=== PATIENT | male | born 1950 | race Caucasian/White ===

== ENCOUNTER 2017-12-06 09:49 | Inpatient (IN) | payer OTHER, MEDICAID ==
[2017-12-06] MEDS ORDERED: ALBUTEROL 3 ML DEYVIAL IH ONE (09:58)
[2017-12-06] MEDS ORDERED: NS 1,000 ML IV ONE (09:58)
[2017-12-06] MEDS ORDERED: IPRATROPIUM/ALBUTEROL 3 ML DEYVIAL IH ONE (09:58)
[2017-12-06] MEDS ORDERED: ALBUTEROL 3 ML DEYVIAL ONE (09:59)
[2017-12-06 10:07] LABS: PLATELET COUNT 217 10^3/uL (150-400)
[2017-12-06] MEDS ORDERED: NS 2,200 ML IV ONE (10:28)
[2017-12-06] MEDS ORDERED: PIPERACILLIN/TAZO 4.5 GM/DEX 100 ML IV ONE (10:29)
--- NOTE | 2017-12-06 10:30 | EDPHY ---
H & P Stated Complaint: SOB, wheezing Time Seen by Provider: 12/06/17 10:29 HPI/ROS: CHIEF COMPLAINT: Respiratory distress HISTORY OF PRESENT ILLNESS: The patient is brought in emergently from the homeless custodial with respiratory distress. The patient does have a history of COPD. He was found minimally responsive in the bathroom. The patient was noted to be markedly hypoxemic in route. He was given IV Solu-Medrol and a DuoNeb. He ultimately was placed on CPAP per EMS. The patient arrives with respiratory distress and is unable to provide history upon arrival. REVIEW OF SYSTEMS: A comprehensive 10 point review of systems is otherwise negative aside from elements mentioned in the history of present illness. Source: Patient - Personal History Current Tetanus/Diphtheria Vaccine: Unsure Current Tetanus Diphtheria and Acellular Pertussis (TDAP): Unsure - Medical/Surgical History Hx Asthma: No Hx Chronic Respiratory Disease: Yes Hx Diabetes: Yes Hx Cardiac Disease: No Hx Renal Disease: No Hx Cirrhosis: No Hx Alcoholism: No Hx HIV/AIDS: No Hx Splenectomy or Spleen Trauma: No Other PMH: difficult to obtain due to pt's condition. Per EMS COPD and DM. - Physical Exam Exam: General Appearance: Elderly male, disheveled, moderate respiratory distress Eyes: Pupils equal and round no pallor or injection ENT, Mouth: Dry mucous membranes Respiratory: Rhonchorous breath sounds bilaterally Cardiovascular: Tachycardic Gastrointestinal: Abdomen is soft and nontender, no masses, bowel sounds normal Neurological: Moves all 4 extremities with 5/5 strength Skin: Warm and dry, no rashes Musculoskeletal: Neck is supple nontender Extremities: symmetrical, full range of motion Constitutional: Initial Vital Signs Temperature (C) 36.9 C 12/06/17 09:49 Heart Rate 131 H 12/06/17 09:49 Respiratory Rate 24 H 12/06/17 09:49 Blood Pressure 89/56 L 12/06/17 09:49 O2 Sat (%) 85 L 12/06/17 09:49 O2 Delivery Mode Bi-Pap O2 (L/minute) 15 Allergies/Adverse Reactions: erythromycin base Allergy (Verified 12/06/17 10:09) Home Medications: Medication Instructions Recorded Gabapentin 600 mg PO TID 12/06/17 Insulin Aspart 0 12/06/17 Insulin Glargine [Lantus] 0 unit SC AD 12/06/17 Levothyroxine [Synthroid 50 mcg 50 mcg PO DAILY06 12/06/17 (*)] Losartan Potassium [Cozaar 50 mg 50 mg PO DAILY 12/06/17 (*)] Tamsulosin HCl [Flomax 0.4 MG (*)] 0.4 mg PO DAILY 12/06/17 amLODIPine BESYLATE [Amlodipine 5 mg PO DAILY 12/06/17 Besylate] metFORMIN HCL [Glucophage 500 mg 500 mg PO BIDMEAL 12/06/17 (*)] traZODone [traZODONE 50MG (*)] 50 mg PO HS 12/06/17 Medical Decision Making - Diagnostics Imaging Results: Imaging Impressions Chest X-Ray 12/06/17 09:53 Impression: 1. Right lower lung pneumonia versus [place] hump related to pulmonary infarction. Clinical correlation is required. 2. Underlying interstitial lung disease of unknown chronicity. 3. Distorted left hilum of unknown chronicity. We would be happy to review any old outside imaging studies if and when they become available for comparison. Results discussed with Dr. Daron Byrne. Procedures: Procedure: Ultrasound guidance. Using the linear probe covered in a sterile sheath, a short axis of the vein was obtained. The vein was completely compressible and was identified as separate from the adjacent non-compressible arterial structure. Under real- time guidance, the introducer needle was observed up to the vein, and then punctured it. Indication: Sepsis. Risks, benefits, alternatives discussed with the patient including but not limited to bleeding, infection, vascular injury, and collapsed lung and consent obtained. A timeout was observed. Full maximal sterile barrier technique was used including cap, gown, sterile gloves, large sheet, hand washing and chlorhexidine prep. The area was anesthetized with 1% lidocaine. A 7 Divehi triple lumen was placed in the right internal jugular vein using standard Seldinger technique. There were no complications. Blood return low pressure, dark blood. Patient tolerated procedure well. CXR results: Appropriate line placement, and no pneumothorax. X-ray was interpreted by myself. Radiologist interpretation is pending. The procedure was performed by myself. ED Course/Re-evaluation: The patient presents the ED with severe respiratory distress. He was brought into the resuscitation room. The patient was placed on BiPAP. An ABG does demonstrate mild CO2 retention. Chest x-ray demonstrates pneumonia. Patient's initial lactic acid was elevated at 2.7. Blood cultures x2 were obtained. The patient was started on Zosyn. He has received a 30 milligram/kilogram bolus for soft blood pressure upon arrival. I did clear severe sepsis in the setting of his pneumonia, leukocytosis, tachycardia and tachypnea. Patient was reassessed at 11:00 a.m.. Blood pressure currently 90/70, heart rate 120 After the patient has fluid bolus he continued to have borderline blood pressures in the systolic 80-90 range. A triple-lumen catheter has been placed. Patient will be started on Levophed for blood pressure support. He is placed back on BiPAP. Blood pressure at 12:30 is currently 105/70, pressors have not been started and will be held. Repeat has been ordered. Repeat venous lactate is noted to be 2.3 at 2:50 p.m.. Blood pressure currently 100/62. Awaiting ICU bed. Differential Diagnosis: Differential diagnosis considered includes sepsis, severe sepsis, septic shock, pneumonia, influenza Critical Care Time: Critical care time exclusive of procedures and exclusive of the PA's time was 65 minutes, performed by myself, Ron Byrne MD. The patient presents to the ED with severe sepsis and borderline shock. - Data Points Laboratory Results: Laboratory Results 12/06/17 10:00 12/06/17 10:00 12/06/17 12/06/17 12/06/17 10:01 10:00 10:00 WBC RBC Hgb POC Hgb 15.3 gm/dL gm/dL (13.7-17.5) Hct POC Hct 45 % % (40-51) MCV MCH MCHC RDW Plt Count MPV Neut % (Auto) Lymph % (Auto) [place] % (Auto) Eos % (Auto) Baso % (Auto) Nucleat RBC Rel Count Absolute Neuts (auto) Absolute Lymphs (auto) Absolute Monos (auto) Absolute Eos (auto) Absolute Basos (auto) Absolute Nucleated RBC Immature Gran % Seg Neutrophils % Band Neutrophils % Lymphocytes % Monocytes % Eosinophils % Basophils % Metamyelocytes % Myelocytes % Promyelocytes % Blast Cells % Immature Gran # Absolute Seg Neuts Absolute Band Neuts Absolute Lymphocytes Absolute Monocytes Absolute Eosinophils Absolute Basophils Absolute Metamyelocyte Absolute Myelocytes Absolute Promyelocytes Absolute Plasma Cells Nucleated RBCs Absolute Blast Cells Plasma Cells % Platelet Estimate Microcytic Cells Puncture Site Patient Temperature pCO2 pO2 Total CO2 ABG pH ABG HCO3 ABG O2 Saturation ABG Base Excess ABG Lactic Acid VBG Lactic Acid 2.6 mmol/L H mmol/L (0.7-2.1) O2 Concentration % POC Sodium 141 mEq/L mEq/L (135-145) Sodium 138 mEq/L mEq/L (135-145) POC Potassium 3.1 mEq/L L mEq/L (3.3-5.0) Potassium 3.4 mEq/L mEq/L (3.3-5.0) POC Chloride 96 mEq/L L mEq/L (97-110) Chloride 96 mEq/L L mEq/L (97-110) Carbon Dioxide 32 mEq/l H mEq/l (22-31) Anion Gap 10 mEq/L mEq/L (6-14) POC BUN 20 mg/dL mg/dL (7-23) BUN 20 mg/dL mg/dL (7-23) Creatinine 1.2 mg/dL mg/dL (0.7-1.3) POC Creatinine 1.3 mg/dL mg/dL (0.7-1.3) Estimated GFR 60 Glucose 68 mg/dL L mg/dL (70-100) POC Glucose 77 mg/dL mg/dL (70-100) Calcium 9.2 mg/dL mg/dL (8.5-10.4) NT-Pro-B Natriuret Pep 373 pg/mL H pg/mL (0-125) 12/06/17 12/06/17 10:00 10:00 WBC 32.56 10^3/uL H 10^3/uL (3.80-9.50) RBC 5.62 10^6/uL 10^6/uL (4.40-6.38) Hgb 13.1 g/dL L g/dL (13.7-17.5) POC Hgb Hct 43.9 % % (40.0-51.0) POC Hct MCV 78.1 fL L fL (81.5-99.8) MCH 23.3 pg L pg (27.9-34.1) MCHC 29.8 g/dL L g/dL (32.4-36.7) RDW 17.2 % H % (11.5-15.2) Plt Count 217 10^3/uL 10^3/uL (150-400) MPV 10.0 fL fL (8.7-11.7) Neut % (Auto) Not Reported Lymph % (Auto) Not Reported [place] % (Auto) Not Reported Eos % (Auto) Not Reported Baso % (Auto) Not Reported Nucleat RBC Rel Count Not Reported Absolute Neuts (auto) Not Reported Absolute Lymphs (auto) Not Reported Absolute Monos (auto) Not Reported Absolute Eos (auto) Not Reported Absolute Basos (auto) Not Reported Absolute Nucleated RBC Not Reported Immature Gran % Not Reported Seg Neutrophils % 64.7 % % Band Neutrophils % 27.3 % % Lymphocytes % 3.0 % % Monocytes % 3.0 % % Eosinophils % 0.0 % % Basophils % 1.0 % % Metamyelocytes % 0.0 % % Myelocytes % 1.0 % % Promyelocytes % 0.0 % % Blast Cells % 0.0 % % Immature Gran # Not Reported Absolute Seg Neuts 21.07 10^3/uL H 10^3/uL (1.70-6.50) Absolute Band Neuts 8.89 10^3/uL H 10^3/uL (0.00-0.70) Absolute Lymphocytes 0.98 10^3/uL L 10^3/uL (1.00-3.00) Absolute Monocytes 0.98 10^3/uL H 10^3/uL (0.30-0.80) Absolute Eosinophils 0.00 10^3/uL L 10^3/uL (0.03-0.40) Absolute Basophils 0.33 10^3/uL H 10^3/uL (0.02-0.10) Absolute Metamyelocyte 0.00 10^3/mL 10^3/mL (0.00-0.00) Absolute Myelocytes 0.33 10^3/mL H 10^3/mL (0.00-0.00) Absolute Promyelocytes 0.00 10^3/uL 10^3/uL (0.00-0.00) Absolute Plasma Cells 0.00 10^3/uL 10^3/uL (0.00-0.00) Nucleated RBCs 1.0 /100 WBC H /100 WBC (0-0) Absolute Blast Cells 0.00 10^3/uL 10^3/uL (0.00-0.00) Plasma Cells % 0.0 % % Platelet Estimate ADEQUATE (ADEQ) Microcytic Cells 1+ H Puncture Site NONE GIVEN Patient Temperature 37.0 DEGREES DEGREES pCO2 53 mmHg H mmHg (34-38) pO2 55 mmHg L mmHg (65-75) Total CO2 31 mEq/L H mEq/L (23-27) ABG pH 7.36 (7.35-7.45) ABG HCO3 29 mEq/L H mEq/L (22-26) ABG O2 Saturation 85 % L % (92-95) ABG Base Excess 2.9 mEq/L H mEq/L (-2.5-2.5) ABG Lactic Acid 2.5 mmol/L H mmol/L (0.5-1.6) VBG Lactic Acid O2 Concentration % NG % % (0-100) POC Sodium Sodium POC Potassium Potassium POC Chloride Chloride Carbon Dioxide Anion Gap POC BUN BUN Creatinine POC Creatinine Estimated GFR Glucose POC Glucose Calcium NT-Pro-B Natriuret Pep Medications Given: Sodium Chloride (Ns) 1,000 mls @ 150 mls/hr IV CONT DANE Stop: 06/04/18 12:14 Last Admin: 12/06/17 12:36 Dose: 1,000 mls Discontinued Medications Albuterol (Proventil Neb) 3 ml IH EDNOW ONE Stop: 12/06/17 09:59 Last Admin: 12/06/17 10:05 Dose: 3 ml Albuterol/Ipratropium (Duoneb) 3 ml IH EDNOW ONE Stop: 12/06/17 09:59 Last Admin: 12/06/17 10:06 Dose: 3 ml Sodium Chloride (Ns) 1,000 mls @ 0 mls/hr IV ONCE ONE; Wide Open PRN Reason: Protocol Stop: 12/06/17 09:59 Last Admin: 12/06/17 10:06 Dose: 1,000 mls Sodium Chloride (Ns) 2,200 mls @ 4,400 mls/hr 30 ml/kg infuse over 30 min ( 2200 ml) IV EDNOW ONE PRN Reason: Protocol Stop: 12/06/17 10:57 Last Admin: 12/06/17 10:43 Dose: 2,200 mls Piperacillin/Tazobactam/Dextrose (Zosyn (Premix)) 100 mls @ 200 mls/hr IV EDNOW ONE PRN Reason: Protocol Stop: 12/06/17 10:58 Last Admin: 12/06/17 11:00 Dose: 100 mls Point of Care Test Results: Chemistry 12/06/17 10:01 POC Sodium 141 mEq/L mEq/L (135-145) POC Potassium 3.1 mEq/L L mEq/L (3.3-5.0) POC Chloride 96 mEq/L L mEq/L (97-110) POC BUN 20 mg/dL mg/dL (7-23) POC Creatinine 1.3 mg/dL mg/dL (0.7-1.3) POC Glucose 77 mg/dL mg/dL (70-100) ISTAT H&H 12/06/17 10:01 POC Hgb 15.3 gm/dL gm/dL (13.7-17.5) POC Hct 45 % % (40-51) Departure - Departure Disposition: [facility] Inpatient Acute Clinical Impression: Severe sepsis, Chronic obstructive pulmonary disease with acute exacerbation Pneumonia Qualifiers: Laterality: bilateral Condition: Critical
[2017-12-06] MEDS ORDERED: ACETAMINOPHEN 325 MG TAB PO PRN (12:06)
[2017-12-06] MEDS ORDERED: ALBUTEROL 3 ML DEYVIAL IH PRN (12:06)
[2017-12-06] MEDS ORDERED: ONDANSETRON DISINTEGRATING 4 MG TAB PO PRN (12:06)
[2017-12-06] MEDS ORDERED: NS 1,000 ML IV SCH (12:15)
[2017-12-06] MEDS ORDERED: NOREPINEPHRINE BITARTRATE 4 MG in NS 500 ML IV ONE (12:19)
--- NOTE | 2017-12-06 13:41 | CPEKG ---
Test Reason : OPEN Blood Pressure : / mmHG Vent. Rate : 119 BPM Atrial Rate : 120 BPM P-R Int : 111 ms QRS Dur : 060 ms QT Int : 309 ms P-R-T Axes : 074 062 000 degrees QTc Int : 435 ms Sinus tachycardia Multiple ventricular premature complexes Probable left atrial enlargement Confirmed by Ron Byrne ([id number]) on 12/06/2017 1:40:45 PM Referred By: Confirmed By:Ron Byrne
[2017-12-06] MEDS ORDERED: LORazepam 2 MG/ML INJ ONE (14:53)
[2017-12-06] MEDS: LORazepam 2 MG/ML INJ IVP PRN ×2 (15:00→19:17)
[2017-12-06] MEDS ORDERED: NOREPINEPHRINE BITARTRATE 4 MG in NS 500 ML IV SCH (15:00)
[2017-12-06] MEDS ORDERED: NOREPINEPHRINE BITARTRATE 16 MG in NS 250 ML IV SCH (15:00)
[2017-12-06] MEDS: NS W/ 20 KCl/L 1,000 ML IV SCH (15:15)
[2017-12-06] MEDS: IPRATROPIUM/ALBUTEROL 3 ML DEYVIAL IH SCH ×2 (16:03→20:38)
--- NOTE | 2017-12-06 16:15 | GCON ---
STORY TELLER CONSULTATION REASON FOR ADMISSION: Pneumonia, sepsis, COPD exacerbation. HISTORY OF PRESENT ILLNESS: The patient is a 67-year-old white male with a past medical history incl uding chronic obstructive pulmonary disease. He was brought in via EMS from a homeless long term in in creasing respiratory difficulty. EMS placed him on CPAP, and he was brought in. He was subsequently diagnosed with pneumonia, admitted to the intensive care unit. The patient is currently on BiPAP an d is unable to provide any history at this time. All history is gleaned from the medical record. PAST MEDICAL HISTORY: Again significant for chronic obstructive pulmonary disease. ALLERGIES: Erythromycin. SOCIAL HISTORY: He is homeless. He has significant tobacco use, unknown alcohol use. MEDICATIONS: At home include gabapentin, insulin, levothyroxine, losartan, tamsulosin, amlodipine, m etformin, and trazodone. PHYSICAL EXAM: VITAL SIGNS: Blood pressure is 99/53, pulse 121, respirations 32, temperature 37.5, oxygen saturation 91% on BiPAP at 100% FiO2. GENERAL: He is a well-developed, elderly white male wh o is minimally agitated on BiPAP. HEENT: Eyes are PERRLA, EOMI. Throat exam is deferred. NECK: S upple. There is no cervical adenopathy. HEART: Regular rate and rhythm. He is markedly tachycardi c. LUNGS: Diminished breath sounds and prolongation expiratory phase. There are a few bibasilar cr ackles. ABDOMEN: Soft, nontender. Bowel sounds are present. EXTREMITIES: No clubbing, cyanosis, or edema. LABORATORIES: White count is 32.56, hemoglobin 13, hematocrit 43. Platelet count is 217. Sodium 14 1, potassium 3.1, chloride 96, CO2 32, BUN 20, creatinine 1.2. Glucose is 98. BNP is elevated at 37 3. Arterial blood gas: pH 7.30, pCO2 of 50, PO2 of 183. Bicarb is 25, oxygen saturation 99%. This is on 100% and BiPAP. Chest x-ray shows central line in good position. There is a dense infiltrate in the right lower lung field, and there is a hint of an infiltrate in the left lower lung field. IMPRESSION: 1. Severe multilobar pneumonia. 2. Chronic obstructive pulmonary disease, acute exacerbation. 3. Hypercarbic respiratory failure. 4. Severe sepsis. 5. Diabetes. 6. Hypothyroidism. 7. Benign prostatic hypertrophy. 8. Probable hypertension. 9. Incomplete database. RECOMMENDATIONS: 1. Agree with admission to the intensive care unit. 2. Continue on BiPAP for now. 3. Mild sedation with Ativan. 4. IV steroids consisting of Solu-Medrol 125 q.6. 5. Sepsis protocol. 6. Agree with current antibiotic coverage of Zosyn and Levaquin. 7. DVT and PE prophylaxis. 8. Stress ulcer prophylaxis. 9. Close cardiovascular monitoring. 10. Aggressive blood sugar control. /[id number]/MODL
--- NOTE | 2017-12-06 16:18 | PDGENHP ---
History and Physical - Chief Complaint Acute unresponsiveness - History of Present Illness Primary care provider: [facility] HPI: 67-year-old male found down unresponsive in the custodial bathroom with visible respiratory distress. EMS responded to the scene, administered Solu- Medrol, nebulizer treatment, face mask oxygen. After the patient presented emergency department, he informs me that he has been experiencing some subjective fevers and chills, shortness of breath, minimal cough, no overt chest pain. He reports that he has not taken his home medications on the morning of presentation, and he is unable to provide any additional history at this time. History Information - Allergies/Home Medication List Allergies/Adverse Reactions: erythromycin base Allergy (Verified 12/06/17 10:09) Home Medications: Gabapentin 600 mg PO TID 12/06/17 [Last Taken Unknown] Insulin Aspart 0 12/06/17 [Last Taken Unknown] Insulin Glargine [Lantus] 0 unit SC AD 12/06/17 [Last Taken Unknown] Levothyroxine [Synthroid 50 mcg (*)] 50 mcg PO DAILY06 12/06/17 [Last Taken Unknown] Losartan Potassium [Cozaar 50 mg (*)] 50 mg PO DAILY 12/06/17 [Last Taken Unknown] Tamsulosin HCl [Flomax 0.4 MG (*)] 0.4 mg PO DAILY 12/06/17 [Last Taken Unknown] amLODIPine BESYLATE [Amlodipine Besylate] 5 mg PO DAILY 12/06/17 [Last Taken Unknown] metFORMIN HCL [Glucophage 500 mg (*)] 500 mg PO BIDMEAL 12/06/17 [Last Taken Unknown] traZODone [traZODONE 50MG (*)] 50 mg PO HS 12/06/17 [Last Taken Unknown] I have personally reviewed and updated: family history, medical history, social history, surgical history - Past Medical History COPD (With chronic hypoxic respiratory failure, patient reports utilizes oxygen 24 hr a day in the outpatient setting), CVA (Without known residual deficits), diabetes type 2 (With diabetic neuropathy), GERD (With Jacome's esophagus), hypertension, hyperlipidemia - Surgical History Additional surgical history: Bronchoscopy in 2016 (-) for malignancy - Family History Additional family history: Unobtainable - Social History Smoking Status: Former smoker Alcohol Use: None (None presently, suspected heavy use in past) Drug Use: None Additional social history: Homeless, recently residing custodial Review of Systems Review of Systems: ROS: 10pt was reviewed & negative except for what was stated in HPI & below Constitutional: Reports: chills, fever Respiratory: Reports: cough, shortness of breath Neurological: Reports: other (Unresponsiveness) Physical Exam Physical Exam: Temp Pulse Resp BP Pulse Ox 37.5 C 126 H 21 H 105/59 L 96 12/06/17 14:41 12/06/17 15:00 12/06/17 15:00 12/06/17 15:00 12/06/17 15:00 O2 (L/minute) 15 FIO2 (%) 80 Constitutional: not in pain, chronically ill appearing, uncomfortable Eyes: PERRL, anicteric sclera, EOMI Cardiovascular: tachycardia, No systolic murmur, No irregularly irregular, No edema Respiratory: expiratory wheeze, respiratory distress (Visibly labored breathing) , rhonchi (Right side on inspiration), No bronchial breath sounds Gastrointestinal: normoactive bowel sounds, soft, non-tender abdomen, No distension Skin: warm, No rash Neurologic: AAOx3, No weakness (Motor strength 5/5 bilateral lower extremities) Psychiatric: not anxious, flat affect, poor memory, No agitated Lab Data & Imaging Review 12/06/17 10:00 12/06/17 10:00 WBC 32.56 10^3/uL (3.80-9.50) H 12/06/17 10:00 RBC 5.62 10^6/uL (4.40-6.38) 12/06/17 10:00 Hgb 13.1 g/dL (13.7-17.5) L 12/06/17 10:00 POC Hgb 15.3 gm/dL (13.7-17.5) 12/06/17 10:01 Hct 43.9 % (40.0-51.0) 12/06/17 10:00 POC Hct 45 % (40-51) 12/06/17 10:01 MCV 78.1 fL (81.5-99.8) L 12/06/17 10:00 MCH 23.3 pg (27.9-34.1) L 12/06/17 10:00 MCHC 29.8 g/dL (32.4-36.7) L 12/06/17 10:00 RDW 17.2 % (11.5-15.2) H 12/06/17 10:00 Plt Count 217 10^3/uL (150-400) 12/06/17 10:00 MPV 10.0 fL (8.7-11.7) 12/06/17 10:00 Neut % (Auto) Not Reported 12/06/17 10:00 Lymph % (Auto) Not Reported 12/06/17 10:00 Spink % (Auto) Not Reported 12/06/17 10:00 Eos % (Auto) Not Reported 12/06/17 10:00 Baso % (Auto) Not Reported 12/06/17 10:00 Nucleat RBC Rel Count Not Reported 12/06/17 10:00 Absolute Neuts (auto) Not Reported 12/06/17 10:00 Absolute Lymphs (auto) Not Reported 12/06/17 10:00 Absolute Monos (auto) Not Reported 12/06/17 10:00 Absolute Eos (auto) Not Reported 12/06/17 10:00 Absolute Basos (auto) Not Reported 12/06/17 10:00 Absolute Nucleated RBC Not Reported 12/06/17 10:00 Immature Gran % Not Reported 12/06/17 10:00 Seg Neutrophils % 64.7 % 12/06/17 10:00 Band Neutrophils % 27.3 % 12/06/17 10:00 Lymphocytes % 3.0 % 12/06/17 10:00 Monocytes % 3.0 % 12/06/17 10:00 Eosinophils % 0.0 % 12/06/17 10:00 Basophils % 1.0 % 12/06/17 10:00 Metamyelocytes % 0.0 % 12/06/17 10:00 Myelocytes % 1.0 % 12/06/17 10:00 Promyelocytes % 0.0 % 12/06/17 10:00 Blast Cells % 0.0 % 12/06/17 10:00 Immature Gran # Not Reported 12/06/17 10:00 Absolute Seg Neuts 21.07 10^3/uL (1.70-6.50) H 12/06/17 10:00 Absolute Band Neuts 8.89 10^3/uL (0.00-0.70) H 12/06/17 10:00 Absolute Lymphocytes 0.98 10^3/uL (1.00-3.00) L 12/06/17 10:00 Absolute Monocytes 0.98 10^3/uL (0.30-0.80) H 12/06/17 10:00 Absolute Eosinophils 0.00 10^3/uL (0.03-0.40) L 12/06/17 10:00 Absolute Basophils 0.33 10^3/uL (0.02-0.10) H 12/06/17 10:00 Absolute Metamyelocyte 0.00 10^3/mL (0.00-0.00) 12/06/17 10:00 Absolute Myelocytes 0.33 10^3/mL (0.00-0.00) H 12/06/17 10:00 Absolute Promyelocytes 0.00 10^3/uL (0.00-0.00) 12/06/17 10:00 Absolute Plasma Cells 0.00 10^3/uL (0.00-0.00) 12/06/17 10:00 Nucleated RBCs 1.0 /100 WBC (0-0) H 12/06/17 10:00 Absolute Blast Cells 0.00 10^3/uL (0.00-0.00) 12/06/17 10:00 Plasma Cells % 0.0 % 12/06/17 10:00 Platelet Estimate ADEQUATE (ADEQ) 12/06/17 10:00 Microcytic Cells 1+ H 12/06/17 10:00 Puncture Site LEFT BRACHIAL 12/06/17 14:00 Patient Temperature 36.8 DEGREES 12/06/17 14:00 pCO2 50 mmHg (34-38) H 12/06/17 14:00 pO2 183 mmHg (65-75) H 12/06/17 14:00 Total CO2 25 mEq/L (23-27) 12/06/17 14:00 ABG pH 7.30 (7.35-7.45) L 12/06/17 14:00 ABG PO2/FiO2 Ratio 183 RATIO 12/06/17 14:00 ABG HCO3 24 mEq/L (22-26) 12/06/17 14:00 ABG O2 Saturation 99 % (92-95) H 12/06/17 14:00 ABG Base Excess -2.4 mEq/L (-2.5-2.5) 12/06/17 14:00 ABG Lactic Acid 2.7 mmol/L (0.5-1.6) H 12/06/17 14:58 VBG Lactic Acid 2.3 mmol/L (0.7-2.1) H 12/06/17 12:36 Mixed VBG O2 Saturation 88 % (65-75) H 12/06/17 12:36 O2 Concentration % 100 % (0-100) 12/06/17 14:00 Actual Respiration Rate 22 12/06/17 14:00 Inspiratory Time 0.8 SECS 12/06/17 14:00 Mode BiPAP YES 12/06/17 14:00 POC Sodium 141 mEq/L (135-145) 12/06/17 10:01 Sodium 138 mEq/L (135-145) 12/06/17 10:00 POC Potassium 3.1 mEq/L (3.3-5.0) L 12/06/17 10:01 Potassium 3.4 mEq/L (3.3-5.0) 12/06/17 10:00 POC Chloride 96 mEq/L (97-110) L 12/06/17 10:01 Chloride 96 mEq/L (97-110) L 12/06/17 10:00 Carbon Dioxide 32 mEq/l (22-31) H 12/06/17 10:00 Anion Gap 10 mEq/L (6-14) 12/06/17 10:00 POC BUN 20 mg/dL (7-23) 12/06/17 10:01 BUN 20 mg/dL (7-23) 12/06/17 10:00 Creatinine 1.2 mg/dL (0.7-1.3) 12/06/17 10:00 POC Creatinine 1.3 mg/dL (0.7-1.3) 12/06/17 10:01 Estimated GFR 60 12/06/17 10:00 Glucose 68 mg/dL (70-100) L 12/06/17 10:00 POC Glucose 77 mg/dL (70-100) 12/06/17 10:01 Calcium 9.2 mg/dL (8.5-10.4) 12/06/17 10:00 NT-Pro-B Natriuret Pep 373 pg/mL (0-125) H 12/06/17 10:00 Visualized and Interpreted Chest x-ray results: Yes Chest X-Ray results: other (Right lower lobe dense infiltrate, fibrotic appearing changes) Visualized and Interpreted EKG results: Yes EKG Interpretation: Positive for: other (Sinus tachycardia) Assessment & Plan Assessment: 67-year-old male presents with severe sepsis, acute on chronic hypoxic and hypercapnic respiratory failure, pneumonia Plan: 1. Severe sepsis. Present on admission, evidenced by 3/3 qSOFA criteria (ICDS- 3) with unresponsiveness on presentation, visible respiratory distress and tachypnea, hypotension, all of which are evidence of autonomic dysregulation in the setting of infection, notably pneumonia, with end-organ failure including respiratory failure, metabolic acidosis, acute kidney injury, unresponsiveness -discussed with Dr. Daron Byrne in the emergency department, he reports to me the patient has received the appropriate fluid bolus as well as additional IV fluids totaling between 3 and 4 L, current CVP 20 with central line -hold on any additional fluid boluses given that it appears the patient is volume resuscitated, continue on maintenance normal saline with potassium at 150ml/hr -empiric IV antibiotics -pressors ordered if needed, utilize Levophed 1st, for SBP less than 80, map less than 65, or rising arterial lactic acid level 2. Acute on chronic hypercapnic and hypoxic respiratory failure. Evidenced by pCO2 of 50 with pH is 7.3, PaO2 of 55 despite being on 15 L non-rebreather face mask, requiring BiPAP therapy, visible respiratory distress, most likely secondary to severe sepsis, acute COPD exacerbation and pneumonia -treat all of the potentiating causes -continue on BiPAP therapy, repeating ABG at 5:00 p.m. And again in a.m. -ICU level respiratory care 3. Acute COPD exacerbation. Evidenced by diffuse expiratory wheezes and hypercapnia, most likely triggered by pneumonia -reviewed outside records including 11/20/2017 discharge summary by Stephanie Wallace, she reports the patient has COPD with chronic O2 requirement, was treated with steroids as well as order of supplemental oxygen during this most recent hospitalization and the patient endorses that he has been utilizing oxygen on a daily basis outside of the hospital -continue on high-dose IV scheduled steroids -continue on scheduled duo nebs -continue BiPAP as above 4. Pneumonia. Present on admission, evidenced by right lower lobe infiltrate, unclear whether this is secondary to aspiration with the patient found unresponsive prior to arrival, received Zosyn in the emergency department -will continue the patient on a combination of Vanco, Zosyn and azithromycin to completely cover potential hospital associated aspiration organisms as well as atypicals, given his most recent inpatient hospitalization earlier this month and his high severity of illness -send strep urine antigen, urine Legionella antigen -check sputum cultures, blood cultures 5. Metabolic acidosis. Acute, secondary to lactic acid, secondary to severe sepsis as above, continue IV fluids 6. Acute kidney injury. Secondary to renal hypoperfusion in the setting of severe sepsis, continue IV fluids -placed Bradshaw catheter to monitor urine output the setting of critical illness 7. Hypertension. Chronic, hold patient's home antihypertensives, he reports he has not taken them this morning so his hypotension on presentation is most likely purely related to severe sepsis 8. Diabetes mellitus type 2 with diabetic neuropathy. Hold patient's gabapentin tonight given his acute kidney injury and altered mental status on presentation, reconsider dosing tomorrow -insulin sliding scale Diet. NPO on BiPAP Prophylaxis. High risk patient, heparin subcu Code. Full per patient, his son ANGEL in [place] is his MD POA Disposition. Anticipated discharge uncertain this time, anticipated length stay is greater than 48 hr for reasonable medical necessity including severe sepsis, critical illness as outlined above. 50 min of critical care time were spent with this patient, at bedside, coordinating care with Dr. Daron Byrne, specifically addressing the patient's severe sepsis respiratory failure and COPD exacerbation as outlined above. Patient remains critically ill with high risk of worsening morbidity and/or mortality.
[2017-12-06] MEDS ORDERED: D50W 25 GM/50 ML SYR IVP PRN (16:30)
--- NOTE | 2017-12-06 16:44 | PDMN ---
Medical Necessity Medical necessity: Pt meets IP criteria per MD & MCG M-160; est los >2 mn for eval/tx of severe sepsis w/acute on chronic hypercapnic & hypoxic respiratory failure, COPD exacerbation, pneumonia & acute kidney injury; pt critically ill; requiring further workup/close ICU monitoring, NPO status on Bipap, IV abx, IV pressors, IV steroids & IVFs (150 mls/hr); hx diabetes, homelessness, CVA; per H &P & order 12/06/17
[2017-12-06] MEDS ORDERED: DIAZEPAM 5 MG/ML 1 ML SYR ONE (17:32)
[2017-12-06] MEDS: AZITHROMYCIN IV 500 MG in NS 250 ML IV SCH (17:37)
[2017-12-06] MEDS: INSULIN REGULAR HUMAN 100 UNIT/ML UNIT SC SCH (17:47)
[2017-12-06] MEDS: methylPREDNISolone SOD SUCC 125 MG/2 ML VIAL IVP SCH (18:11)
[2017-12-06] MEDS: VANCOMYCIN 1.25 GM in D5W 250 ML IV SCH (19:04)
[2017-12-06] MEDS: PIPERACILLIN/TAZO 4.5 GM/DEX 100 ML IV SCH (19:45)
[2017-12-06] MEDS: HEPARIN 5,000 UNIT/0.5 ML INJ SC SCH (21:54)
[2017-12-06] MEDS: traZODone 50 MG TAB PO SCH (22:52)
[2017-12-07] MEDS: LORazepam 2 MG/ML INJ IVP PRN (00:18)
[2017-12-07] MEDS: methylPREDNISolone SOD SUCC 125 MG/2 ML VIAL IVP SCH ×5 (00:19→23:54)
[2017-12-07] MEDS: PIPERACILLIN/TAZO 4.5 GM/DEX 100 ML IV SCH ×2 (00:19→07:25)
[2017-12-07] MEDS: NS W/ 20 KCl/L 1,000 ML IV SCH (01:09)
[2017-12-07] MEDS: INSULIN REGULAR HUMAN 100 UNIT/ML UNIT SC SCH ×2 (01:15→07:25)
[2017-12-07] MEDS: IPRATROPIUM/ALBUTEROL 3 ML DEYVIAL IH SCH (04:54)
[2017-12-07] MEDS: HEPARIN 5,000 UNIT/0.5 ML INJ SC SCH ×3 (05:55→21:03)
[2017-12-07] MEDS: VANCOMYCIN 1.25 GM in D5W 250 ML IV SCH (05:55)
[2017-12-07 06:37] LABS: PLATELET COUNT 202 10^3/uL (150-400)
[2017-12-07] MEDS ORDERED: LIDOCAINE 1% 300 MG/30 ML SDV ONE ×2 (06:39→07:15)
[2017-12-07] MEDS ORDERED: PROPOFOL/EMULSION 500 MG/50 ML BOTTLE IV ONE (06:57)
--- NOTE | 2017-12-07 07:09 | PDINTPN ---
[employer] Progress Note Assessment/Plan: Assessment: * Community-acquired pneumonia-white count up, but this may be secondary to steroids -continue Zosyn and Levaquin * Chronic obstructive pulmonary disease with acute exacerbation -continue high-dose Solu-Medrol -frequent duo nebs * Hypercarbic respiratory failure-worsened over the course of the evening. Patient emergently intubated placed on mechanical ventilation by myself. -will increase rate on mechanical ventilation to reduce pCO2 -recheck ABG in approximately 2 hr * Severe sepsis-on sepsis protocol. Blood pressure holding. * Metabolic acidosis * Sedation -will start propofol and fentanyl drips * Acute renal failure- * Diabetes-blood sugars okay * History of peripheral neuropathy * Hypertension * Tachycardia * VTE prophylaxis * Stress ulcer prophylaxis * Nutrition-currently none Subjective: Obtunded Objective: Vital Signs Temp Pulse Resp BP Pulse Ox 36.9 C 118 H 23 H 134/71 H 94 12/07/17 06:00 12/07/17 06:00 12/07/17 06:00 12/07/17 06:00 12/07/17 06:00 Laboratory Results 12/07/17 05:45 12/07/17 05:45 12/06/17 12/07/17 12/08/17 05:59 05:59 05:59 Intake Total 8533 Output Total 1375 Balance 7158 Laboratory Results 12/07/17 05:45 12/07/17 05:45 12/07/17 12/07/17 12/06/17 05:45 05:45 14:55 Patient Temperature 38.0 DEGREES DEGREES pCO2 65 mmHg H mmHg (34 - 38) pO2 86 mmHg H mmHg (65 - 75) Total CO2 24 mEq/L mEq/L (23 - 27) ABG pH 7.16 L* (7.35 - 7.45) ABG PO2/FiO2 Ratio 106 RATIO RATIO ABG HCO3 22 mEq/L mEq/L (22 - 26) ABG O2 Saturation 93 % % (92 - 95) ABG Base Excess -6.8 mEq/L L mEq/L (-2.5 - 2.5) ABG Lactic Acid 3.5 mmol/L H mmol/L (0.5 - 1.6) O2 Concentration % 80 % % Inspiratory Pressure 10 Mode BiPAP YES Calcium 7.5 mg/dL L mg/dL (8.5 - 10.4) Total Bilirubin 0.5 mg/dL mg/dL (0.1 - 1.4) AST 29 IU/L IU/L (17 - 59) ALT 37 IU/L IU/L (21 - 72) Alkaline Phosphatase 52 IU/L IU/L (38 - 126) NT-Pro-B Natriuret Pep Total Protein 5.8 g/dL L g/dL (6.3 - 8.2) Albumin 3.3 g/dL L g/dL (3.5 - 5.0) Urine Legionella Ag Pending Ur Strep pneumoniae Ag Pending 12/06/17 10:00 Patient Temperature pCO2 pO2 Total CO2 ABG pH ABG PO2/FiO2 Ratio ABG HCO3 ABG O2 Saturation ABG Base Excess ABG Lactic Acid O2 Concentration % Inspiratory Pressure Mode BiPAP Calcium Total Bilirubin AST ALT Alkaline Phosphatase NT-Pro-B Natriuret Pep 373 pg/mL H pg/mL (0 - 125) Total Protein Albumin Urine Legionella Ag Ur Strep pneumoniae Ag Chest x-ray by myself. Central line in good position. Bibasilar infiltrates. Appears to be some evidence of fluid overload. - Time Spent With Patient Time Spent With Patient: 45 min of critical care time spent with patient. Case discussed with respiratory therapy and nursing Physical Exam - Physical Exam General Appearance: alert, no apparent distress EENT: PERRL/EOMI, normal ENT inspection, ET tube Neck: non-tender, full range of motion Respiratory: chest non-tender, crackles, prolonged expiration, No respiratory distress, No wheezing Cardiac/Chest: normal peripheral pulses, regular rate, rhythm, tachycardia Peripheral Pulses: 2+: carotid (R), carotid (L), femoral (R), femoral (L), dorsalis-pedis (R), dorsalis-pedis (L) Abdomen: normal bowel sounds, non-tender, soft Male Genitalia: deferred Rectal: deferred Skin: normal color, warm/dry Extremities: normal range of motion, non-tender, normal inspection, normal capillary refill Neuro/Psych: No alert ICD10 Worksheet Patient Problems: Problems Problem Status Onset Chronic obstructive pulmonary disease with acute exacerbation Acute Pneumonia Acute Severe sepsis Acute
[2017-12-07] MEDS: LEVOTHYROXINE 50 MCG TAB PO SCH (07:10)
[2017-12-07] MEDS ORDERED: MIDAZOLAM 2 MG/2 ML VIAL IVP ONE (07:15)
[2017-12-07] MEDS ORDERED: SUCCINYLCHOLINE CHLORIDE 200 MG/10 ML SYR IVP ONE (07:15)
[2017-12-07] MEDS ORDERED: LIDOCAINE 1% 300 MG/30 ML SDV MISC ONE (07:21)
[2017-12-07] MEDS ORDERED: PROPOFOL/EMULSION 50 ML IV ONE (07:30)
[2017-12-07] MEDS: PROPOFOL/EMULSION 100 ML IV SCH ×2 (07:31→21:03)
--- NOTE | 2017-12-07 07:34 | GPN ---
PROCEDURE: Intubation note. INDICATION: Hypercarbic respiratory failure. DESCRIPTION OF PROCEDURE: Procedure was performed in the intensive care unit. Continuous pulse ox, EKG and blood pressure monitoring. ANESTHESIA: Patient was given Versed 2 mg and succinylcholine 70 mg. After time-out, the patient was intubated with an #8 endotracheal tube via GlideScope. Tracheal posi tion was confirmed via capnograph. Endotracheal tube was then taped at 24 cm at the lip. The patien t tolerated the procedure well with no apparent complications. Portable chest x-ray has been called for. /[id number]/MODL
--- NOTE | 2017-12-07 07:59 | GPN ---
PROCEDURE: Fiberoptic bronchoscopy. INDICATION: Pneumonia. ANESTHESIA: The patient is currently sedated on mechanical ventilation. He received 1% lidocaine to pically. Procedure was performed in the intensive care unit with continuous pulse ox, EKG and blood pressure m onitoring. Please note, patient is on mechanical ventilation which is by definition, a closed system and posed no risk to airborne pathogens. A time-out was performed. PROCEDURE: Bronchoscope was entered through a #8 endotracheal tube. Distal trachea and sudha were visualized, showed moderate amount of thin secretions that were therapeutically aspirated. Bronchoscope in the left lung. Left upper lobe, lingula, lower lobe, including subsegments were visu alized and again showed moderate amount of thin secretions that were therapeutically aspirated. Bron choscope in the right lung. Right upper lobe, right middle lobe, right lower lobe including subsegme nts was again visualized and showed no endobronchial lesions, normal-appearing mucosa and again moder ate amount of thin secretions that were therapeutically aspirated. Bronchoalveolar lavage taken of the right lower lobe. This was sent for C and S and cultures. The patient tolerated the procedure well with no apparent complications. Portable chest x-ray has be en called for. /[id number]/MODL
[2017-12-07] MEDS: CHLORHEXIDINE GLUCONATE 15 ML UDL PO SCH ×2 (08:23→21:04)
[2017-12-07] MEDS: AZITHROMYCIN IV 500 MG in NS 250 ML IV SCH (08:31)
[2017-12-07] MEDS ORDERED: ENOXAPARIN 40 MG/0.4 ML SYR SC SCH (09:00)
[2017-12-07] MEDS: TAMSULOSIN HCL 0.4 MG CAP PO SCH (09:02)
[2017-12-07] MEDS ORDERED: ALBUTEROL 3 ML DEYVIAL IH PRN ×2 (09:04→12:00)
[2017-12-07] MEDS: fentaNYL/NACL 100 ML IV SCH (09:22)
[2017-12-07] MEDS: FAMOTIDINE 20 MG/NACL 50 ML IV SCH ×2 (09:22→21:03)
--- NOTE | 2017-12-07 09:51 | HOSPPROG ---
Hospitalist Progress Note Assessment/Plan: 67M, homeless, found in snf bathroom unresponsive. Currently treating for pneumococcal bacteremia and pneumonia, intubated 12/07. # acute hypoxic and hypercapnic resp failure - intubated this morning # strep pneumoniae pneumonia/bacteremia - currently on azith, zosyn, vanc - per ID # viral bronchitis/pna # severe sepsis - d/t above with pneumonia, leukocytosis, tachycardia, resp failure # SALVATORE - d/t sepsis; follow closely - recheck BMP later today # COPD, likely acute exacerbation - high dose steroids # DM2, insulin dependent - quite hyperglycemia - stop SSI and start insulin gtt # mild hyperK - stop NS + K # homeless # dvt ppx - lovenox Subjective: intubated this am Objective: Vital Signs Temp Pulse Resp BP Pulse Ox 37.2 C 85 18 98/64 L 99 12/07/17 09:00 12/07/17 09:00 12/07/17 09:00 12/07/17 09:00 12/07/17 09:00 Laboratory Results 12/07/17 05:45 12/07/17 05:45 12/06/17 12/07/17 12/08/17 05:59 05:59 05:59 Intake Total 8533 Output Total 1375 Balance 7158 45 mins CC time managing sepsis and resp failure - Physical Exam Constitutional: other (sedated, intubated) Ears, Nose, Mouth, Throat: other (R IJ) Cardiovascular: regular rate and rhythym, no murmur, rub, or gallop Respiratory: inspiratory crackles, rhonchi (diffuse), other (coarse BS) Gastrointestinal: soft, non-tender abdomen, No guarding, No rebound, No distension ICD10 Worksheet Patient Problems: Problems Problem Status Onset Severe sepsis Acute Pneumonia Acute Chronic obstructive pulmonary disease with acute exacerbation Acute
[2017-12-07] MEDS: INSULIN REGULAR HUMAN 100 UNIT in NS 100 ML IV SCH (10:37)
[2017-12-07] MEDS: D5W 1,000 ML IV SCH (10:37)
[2017-12-07] MEDS: ALBUTEROL 60 PUFFS/8 GM MDI IH SCH ×4 (11:05→23:17)
[2017-12-07] MEDS ORDERED: IPRATROPIUM/ALBUTEROL 3 ML DEYVIAL IH SCH (12:00)
[2017-12-07] MEDS ORDERED: ALBUTEROL 3 ML DEYVIAL IH SCH (12:00)
--- NOTE | 2017-12-07 12:14 | GCON ---
INPATIENT INFECTIOUS DISEASE CONSULTATION REFERRING PHYSICIAN: Parker Lima MD REASON FOR REFERRAL: Sepsis, gram-positive bacteremia. HISTORY OF PRESENT ILLNESS: The patient is a 67-year-old male who was brought into the emergency aneta on 12/06/2017, from the homeless half-way after being found minimally responsive in the showers. Th e patient was in significant respiratory distress. Upon evaluation at [facility], the patient was found to have a right-sided pneumonia. His blood cultures rapidly turned positive with g eddie-positive cocci in chains. This was identified by ID as Streptococcus pneumoniae. The patient was begun on vancomycin and Zosyn. He also received a dose of azithromycin. Currently, he is intub ated and sedated. Vital signs are stable. We are consulted to assist with antibiotic management. PAST MEDICAL HISTORY: 1. COPD. 2. History of a cerebrovascular accident. 3. Diabetes type 2. 4. Gastroesophageal reflux disease. 5. Hypertension. 6. Hyperlipidemia. PAST SURGICAL HISTORY: None noted. ANTIBIOTICS: 1. Vancomycin. 2. Zosyn. 3. Azithromycin. ALLERGIES: Patient is allergic to erythromycin base. SOCIAL HISTORY: The patient is a former tobacco user. By admission, denies any current alcohol or d rug use. He was recently homeless and residing in a half-way. FAMILY HISTORY: Reviewed, but noncontributory. REVIEW OF SYSTEMS: Unable to obtain secondary to intubated and sedated status. PHYSICAL EXAMINATION: VITAL SIGNS: Temperature maximum is 38.2, temperature current is 37.5, heart rate is 71, respiratory rate is 18, blood pressure is 86/53. GENERAL: The patient is a well-formed, well-nourished older male, intubated and sedated. HEENT: Normocephalic for age. Atraumatic. No s cleral icterus. ET tube in place. NECK: Supple. No meningismus. LUNGS: Coarse breath sounds, right side greater than left. HEART: Regular rate and rhythm. No tac hycardia. No murmur heard. No significant pedal edema. ABDOMEN: Soft. No masses. SKIN: Warm an d dry to the touch. No rash or lesion seen. MUSCULOSKELETAL: No muscle belly tenderness is noted. No joint enlargement, effusion, or arthritis is seen. LABORATORY DATA: Patient has a CBC dated 12/07/2017, which shows a white blood cell count of 49.55, hemoglobin of 11.3, hematocrit 38.8, and a platelet count of 202. Differential shows 58% segmented n eutrophils, 40% band forms. Serum chemistries on 12/07/2017 show sodium of 141, potassium of 5.2, ch loride of 105, bicarbonate of 23, BUN of 27, creatinine of 1.4. AST is 29, ALT is 37. Tox screen is negative. Urine Legionella antigen and urine Strep pneumo antigen are pending. MICROBIOLOGIC DATA: Patient has blood cultures dated 12/06/2017: 2/2 sets are positive for gram-pos itive cocci in chains. Identification by PCR as well as standard identification confirms Streptococc us pneumoniae. Nasal sinus respiratory panel PCR shows positive PCR result for human rhinovirus/ente rovirus. RADIOLOGIC DATA: Patient has a chest x-ray dated 12/07/2017, which shows right lower lobe atelectasi s and intubation. ASSESSMENT: Sepsis with Streptococcus pneumoniae bacteremia. Appears in initial x-rays to have a de gree of right-sided pneumonia. Regardless, pathogen is now clear that it is Streptococcus pneumoniae . We can consolidate antibiotics to ceftriaxone. We will discontinue azithromycin, especially notin g his allergy to another macrolide base. We will proceed forward with monotherapy with ceftriaxone. Continue intensive care unit support. PLAN: 1. Discontinue all antibiotics. 2. Start ceftriaxone 2 g IV q.24 hours. 3. Continue ICU support. 4. Follow his clinical course. /[id number]/MODL
--- NOTE | 2017-12-07 14:30 | ASMTLACE ---
JANIS Acuity / Level of Answers: Yes Care: Did the patient have an inpatient admission? Comorbidities - select Answers: Any tumor (including all that apply lymphoma or leukemia) Cerebrovascular disease (CVA, TIA, aneurysms, vasc ular dementia) Chronic pulmonary disease Diabetes (uncontrolled or controlled) Other Notes: HTN, Hyperlipidemia # of Emergency department Answers: 1-2 visits in the last 6 months Social determinants Answers: History of substance abuse (ETOH, street drugs, prescription drugs, etc.) Homelessness (street, fpc) Score: 17 Date Signed: 12/07/2017 02:29 PM Electronically Signed By:Radha Ochoa RN
--- NOTE | 2017-12-07 14:33 | ASMTCMCOM ---
CM Note CM Note Notes: Reviewed chart. Pt found down in half-way bathroom, transported to the Emergency Department via EMS. History includes COPD with hypoxic respiratory failure with 24 hr oxygen needs, diabetes type 2, CVA with no residual deficits, GERD with Jacome's esophagus, HTN, hyperlipidemia, bronchoscopy for malignancy, alcoholism. Pt is currently homeless and staying at the [facility]. Discharge needs remain unclear at this time. CM will continue to follow. Discharge Plan: To be determined Date Signed: 12/07/2017 02:33 PM Electronically Signed By:Radha Ochoa RN
[2017-12-07] MEDS: NS 1,000 ML IV SCH (23:55)
[2017-12-08] MEDS: traZODone 50 MG TAB PO SCH ×2 (01:50→22:13)
[2017-12-08] MEDS: INSULIN REGULAR HUMAN 100 UNIT in NS 100 ML IV SCH (03:19)
[2017-12-08] MEDS: ALBUTEROL 60 PUFFS/8 GM MDI IH SCH ×6 (04:12→23:43)
[2017-12-08] MEDS: HEPARIN 5,000 UNIT/0.5 ML INJ SC SCH (06:17)
[2017-12-08] MEDS: methylPREDNISolone SOD SUCC 125 MG/2 ML VIAL IVP SCH ×3 (06:17→19:14)
[2017-12-08] MEDS: PROPOFOL/EMULSION 100 ML IV SCH ×2 (06:40→22:16)
[2017-12-08] MEDS: LEVOTHYROXINE 50 MCG TAB PO SCH (06:40)
[2017-12-08 08:23] LABS: PLATELET COUNT 153 10^3/uL (150-400)
[2017-12-08] MEDS: FAMOTIDINE 20 MG/NACL 50 ML IV SCH ×2 (08:50→22:13)
[2017-12-08] MEDS: CHLORHEXIDINE GLUCONATE 15 ML UDL PO SCH (08:50)
[2017-12-08] MEDS ORDERED: AZITHROMYCIN IV 500 MG in NS 250 ML IV SCH (09:00)
[2017-12-08] MEDS: TAMSULOSIN HCL 0.4 MG CAP PO SCH (09:32)
--- NOTE | 2017-12-08 09:32 | PDINTPN ---
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 Blood pressure holding. * Metabolic acidosis-improved * Sedation-stable -continue propofol and fentanyl drips * Acute renal failure-improved. Creatinine normalized but BUN still slightly up. * Diabetes-blood sugars okay * History of peripheral neuropathy * Hypertension * Tachycardia-resolved * VTE prophylaxis * Stress ulcer prophylaxis * Nutrition-currently none -NG tube to be placed -will start tube feeds Subjective: Sedated on mechanical ventilation Objective: Vital Signs Temp Pulse Resp BP Pulse Ox 37 C 77 18 148/93 H 100 12/08/17 09:00 12/08/17 09:00 12/08/17 09:00 12/08/17 09:00 12/08/17 09:00 Microbiology 12/07/17 07:30 Gram Stain - Final Bronchial Washing - Unspecified 12/07/17 07:30 - Final Sputum, Expectorated Sputum Culture - Final Laboratory Results 12/08/17 06:16 12/08/17 04:50 12/07/17 12/08/17 12/09/17 05:59 05:59 05:59 Intake Total 8533 2792 Output Total 1375 1000 Balance 7158 1792 Chest [id number]-vgnuxixq by myself. Endotracheal tube in good position. Central line in good position. Infiltrates bibasilar right greater than left - Time Spent With Patient Time Spent With Patient: 35 min of critical care time spent with patient Case discussed with Nursing and Respiratory therapy Physical Exam - Physical Exam General Appearance: other (Sedated), No alert EENT: PERRL/EOMI, ET tube Neck: non-tender, full range of motion Respiratory: crackles (Bibasilar), prolonged expiration, No respiratory distress , No wheezing Cardiac/Chest: normal peripheral pulses, regular rate, rhythm Abdomen: normal bowel sounds, non-tender, soft Male Genitalia: deferred Rectal: deferred Skin: normal color Extremities: non-tender Neuro/Psych: No alert ICD10 Worksheet Patient Problems: Problems Problem Status Onset Chronic obstructive pulmonary disease with acute exacerbation Acute Pneumonia Acute Severe sepsis Acute
--- NOTE | 2017-12-08 09:41 | HOSPPROG ---
Hospitalist Progress Note Assessment/Plan: 67M, homeless, found in [facility] bathroom unresponsive. Currently treating for pneumococcal bacteremia and pneumonia, intubated 12/07. # acute hypoxic and hypercapnic resp failure - continues to be intubated; ABG ok # strep pneumoniae pneumonia/bacteremia - currently on rocephin 2g daily - recheck blood cultures per ID # viral bronchitis/pna # severe sepsis - d/t above with pneumonia, leukocytosis, tachycardia, resp failure - WBC down today # SALVATORE - d/t sepsis; - improved # COPD, likely acute exacerbation - high dose steroids; taper soon # DM2, insulin dependent - - glucs better on insulin gtt # mild hyperK - resolved, off NS + K # homeless # dvt ppx - lovenox Subjective: woke up with sedation vacation Objective: Vital Signs Temp Pulse Resp BP Pulse Ox 37 C 77 18 148/93 H 100 12/08/17 09:00 12/08/17 09:00 12/08/17 09:00 12/08/17 09:00 12/08/17 09:00 Microbiology 12/07/17 07:30 Gram Stain - Final Bronchial Washing - Unspecified 12/07/17 07:30 - Final Sputum, Expectorated Sputum Culture - Final Laboratory Results 12/08/17 06:16 12/08/17 04:50 12/07/17 12/08/17 12/09/17 05:59 05:59 05:59 Intake Total 8533 2792 Output Total 1375 1000 Balance 7158 1792 35 mins floor CC time managing resp failure and pneumonia - Physical Exam Constitutional: other (intubated) Cardiovascular: regular rate and rhythym, no murmur, rub, or gallop Respiratory: other (coarse BS) Gastrointestinal: soft, non-tender abdomen, no palpable masses, No guarding, No rebound, No distension ICD10 Worksheet Patient Problems: Problems Problem Status Onset Severe sepsis Acute Pneumonia Acute Chronic obstructive pulmonary disease with acute exacerbation Acute
--- NOTE | 2017-12-08 10:51 | PCMIDPN ---
Assessment/Plan: Assessment: Strep pneumo bacteremia from an unclear respiratory source. Patient is not in need of any pressors. Continues to receive ceftriaxone 2 g daily. Vital signs and hemodynamics are very stable. He failed his weaning trial so will remain intubated for the time being. Will obtain a 2D echocardiogram. Plan: 1. Continue IV ceftriaxone at current dose. 2. 2D echocardiogram. 3. Follow hospital course. 12/08/17 10:48 Subjective: Patient remains intubated and sedated. He has been hemodynamically stable and afebrile. Objective: Ceftriaxone # 2 Vital Signs Temp Pulse Resp BP Pulse Ox 37 C 72 18 137/87 H 100 12/08/17 10:00 12/08/17 10:00 12/08/17 10:00 12/08/17 10:00 12/08/17 10:00 Microbiology 12/07/17 07:30 Gram Stain - Final Bronchial Washing - Unspecified 12/07/17 07:30 - Final Sputum, Expectorated Sputum Culture - Final Laboratory Results 12/08/17 06:16 12/08/17 04:50 12/07/17 12/08/17 12/09/17 05:59 05:59 05:59 Intake Total 8533 2792 Output Total 1375 1000 Balance 7158 1792 - Physical Exam General Appearance: WD/WN, no apparent distress, other (Intubated and sedated) EENT: ET Tube Respiratory: coarse breath sounds, No lungs clear, No respiratory distress Cardiac/Chest: regular rate, rhythm, No tachycardia Skin: normal color, warm/dry, No rash Neuro/Psych: alert, normal mood/affect, oriented x 3 ICD10 Worksheet Patient Problems: Problems Problem Status Onset Chronic obstructive pulmonary disease with acute exacerbation Acute Pneumonia Acute Severe sepsis Acute
[2017-12-08] MEDS: ENOXAPARIN 40 MG/0.4 ML SYR SC SCH (13:01)
[2017-12-08] MEDS: NS 1,000 ML IV SCH (13:01)
--- NOTE | 2017-12-08 13:23 | ECHO ---
[email or web address] [address] Main: [phone] Fax: Transthoracic Echocardiogram Name: MANDI CARNEY MR#: [id number] Study Date: 12/08/2017 Study Time: 12:08 PM Date of : 1950 Age: 67 year(s) Height: ( ) Weight: ( ) BSA: Gender: Male Examination: Echo Indication: streptococcal bacteremia Image Quality: Adequate Contrast: Requested by: Krishna Johnson BP: 132 mmHg/82 mmHg Heart Rate: Rhythm: Indication: streptococcal bacteremia Procedure Staff Principal Secretary: Geraldine Aj [facility] Reading Physician: Geraldo Hou MD Requesting Provider: Conclusions: Normal size left ventricle. Moderately reduced systolic LV function. The ejection fraction is visually estimated to be 35 %. Global hypokinesis. Mildly reduced RV function. The left atrium is normal in size. The right atrium is normal in size. There is mild thickening of the mitral valve leaflets. No obvious vegetation. The aortic valve is tri-leaflet and functions normally. Mild aortic cusp calcification is noted. No obvious vegetation noted. Right ventricular systolic pressure measures 22mmHg. The IVC is dilated. No evidence of valvular vegetations. Consider CAROLEE if clinically indicated. Measurements: Chambers Valvular Assessment AV/MV Valvular Assessment TV/PV Normal Normal Normal Name Value Range Name Value Range Name Value Range Ao Maddy (MM): 3.0 cm (2.2 cm-3.7 AV Vmax: 0.90 m/s (1 m/s-1.7 TR Vmax: 2.09 mm/s ( - ) cm) m/s) TR PGmax: 17 mmHg ( - ) IVSd (2D): 0.7 cm (0.6 cm-1.1 AV maxP mmHg ( - ) syst. PAP: 22 mmHg ( - ) cm) AV meanP mmHg ( - ) PV Vmax: 0.58 m/s (0.6 m/s-0.9 LVDd (2D): 4.1 cm (4.2 cm-5.9 JACQUI (VTI): 1.9 cm ( - ) m/s) cm) MV E Vmax: 1.06 m/s ( - ) PV PGmax: 1 mmHg ( - ) LVDs (2D): 3.4 cm (2.1 cm-4 MV A Vmax: 1.13 m/s ( - ) cm) MV E/A: 0.94 ( - ) LVPWd (2D): 0.9 cm (0.6 cm-1 cm) Patient: MANDI CARNEY Study Date: 12/08/2017 Page 1 of 2 12:08 PM LVOTd 1.9 cm 1.9 cm mm LVEF (BP): 39 % (>=55 %) Visual EF: 35 % RVDd(2D): 2.6 cm (1.9 cm-3.8 cmmm) Continued Measurements: Chambers Valvular Assessment AV/MV Valvular Assessment TV/PV Name Value Name Value Name Value LADs Lon.0 cm MV DecTime: 127 m/s CVP (est.): 5 mmHg LA Area: 16.1 cm2 MV E' Septal: 0.05 m/s LA Volume: 33 ml MV E/E' Septal: 23.10 TAPSE: 1.6 cm MV E/E' Lateral: 22.60 RA Area: 10.8 cm2 Findings: Left Ventricle: Normal size left ventricle. No LV hypertrophy. Moderately reduced systolic LV function. The ejection fraction is visually estimated to be 35 %. Global hypokinesis. Right Ventricle: Normal size right ventricle. Mildly reduced RV function. Left Atrium: The left atrium is normal in size. LA Index 17.7 ml/m2. Right Atrium: The right atrium is normal in size. Mitral Valve: There is mild thickening of the mitral valve leaflets. Mild mitral annular calcification. Mild mitral valve regurgitation is present. No mitral stenosis is present. No obvious vegetation. Aortic Valve: The aortic valve is tri-leaflet and functions normally. Mild aortic cusp calcification is noted. There is no aortic valve regurgitation. No aortic valve stenosis is present. No obvious vegetation noted. Tricuspid Valve: The tricuspid valve is normal in appearance and function. Trivial to mild tricuspid valve regurgitation. Right ventricular systolic pressure measures 22mmHg. The pulmonary artery pressure is normal. No tricuspid valve vegetation. Pulmonic Valve: Pulmonary valve not well visualized. There is no pulmonic regurgitation seen. Aorta: Normal size aortic root measuring 3.0 cm. IVC: The IVC is dilated. Patient on a ventilator. Pericardium: No pericardial effusion. (No Signature Object) Patient: MANDI CARNEY Study Date: 12/08/2017 Page 2 of 2 12:08 PM [id number]
[2017-12-09] MEDS: methylPREDNISolone SOD SUCC 125 MG/2 ML VIAL IVP SCH ×3 (01:13→12:53)
[2017-12-09] MEDS: CHLORHEXIDINE GLUCONATE 15 ML UDL PO SCH ×3 (01:14→20:22)
[2017-12-09] MEDS: D5W 1,000 ML IV SCH (02:30)
[2017-12-09] MEDS: NS 1,000 ML IV SCH (02:30)
[2017-12-09] MEDS: ALBUTEROL 60 PUFFS/8 GM MDI IH SCH ×4 (03:32→17:36)
[2017-12-09 04:50] LABS: PLATELET COUNT 169 10^3/uL (150-400)
[2017-12-09] MEDS: LEVOTHYROXINE 50 MCG TAB PO SCH (07:25)
--- NOTE | 2017-12-09 09:24 | PCMIDPN ---
Assessment/Plan: Assessment/Plan: * Severe sepsis due to Streptococcus pneumoniae bacteremia associated with pneumonia: Clinically improving with supportive care and antibiotic therapy. Blood cultures show Streptococcus pneumoniae and urine Streptococcus pneumoniae antigen positive. Continue ceftriaxone and supportive care of sepsis. Respiratory pathogen panel also shows presence of rhino virus/enterovirus of unclear significance. Continue droplet precautions based on this finding. 12/09/17 09:21 Subjective: Patient intubated. Tries to open eyes to name. No pressor requirements. Objective: Vital Signs Temp Pulse Resp BP Pulse Ox 36.3 C 75 17 174/88 H 100 12/09/17 08:12 12/09/17 08:12 12/09/17 08:12 12/09/17 07:00 12/09/17 08:12 Microbiology 12/07/17 07:30 Gram Stain - Final Bronchial Washing - Unspecified Laboratory Results 12/09/17 04:30 12/09/17 04:30 12/08/17 12/09/17 12/10/17 05:59 05:59 05:59 Intake Total 2792 3198 Output Total 1000 1175 Balance 1792 3 Ceftriaxone # 3 Blood cultures 2/2 Streptococcus pneumoniae Urine Streptococcus pneumoniae antigen positive, Legionella antigen negative Chest x-ray with improving bilateral infiltrates - Physical Exam General Appearance: other (Intubated) EENT: ET Tube, No scleral icterus, No conjunctival petechiae Respiratory: wheezing, coarse breath sounds Cardiac/Chest: regular rate, rhythm, No systolic murmur Extremities: No inflammation Abdomen: non-tender, No distended Skin: No rash, No embolic lesions - Line/s other Lines: other (Right IJ triple-lumen catheter), No drainage, No erythema ICD10 Worksheet Patient Problems: Problems Problem Status Onset Chronic obstructive pulmonary disease with acute exacerbation Acute Pneumonia Acute Severe sepsis Acute
[2017-12-09] MEDS: ENOXAPARIN 40 MG/0.4 ML SYR SC SCH (09:27)
[2017-12-09] MEDS: FAMOTIDINE 20 MG/NACL 50 ML IV SCH ×2 (09:27→20:46)
[2017-12-09] MEDS: TAMSULOSIN HCL 0.4 MG CAP PO SCH (09:28)
[2017-12-09] MEDS ORDERED: FUROSEMIDE 20 MG/2 ML VIAL IV ONE (09:30)
[2017-12-09] MEDS ORDERED: INSULIN GLARGINE 100 UNITS/ML UNIT SC SCH (10:30)
[2017-12-09] MEDS ORDERED: PROTOCOL POTASSIUM 1 DOSE MISC PRN (10:33)
[2017-12-09] MEDS ORDERED: PROPOFOL/EMULSION 1,000 MG/100 ML BOTTLE IV ONE ×2 (11:34→21:21)
[2017-12-09] MEDS: PROPOFOL/EMULSION 100 ML IV SCH ×2 (11:37→21:35)
[2017-12-09] MEDS: POTASSIUM Cl (KCl) 50 ML IV SCH ×3 (13:35→15:08)
[2017-12-09] MEDS: fentaNYL/NACL 100 ML IV SCH ×2 (13:37→21:35)
--- NOTE | 2017-12-09 13:45 | PDINTPN ---
Accounts Payable Manager Progress Note Assessment/Plan: Assessment: 67-year-old homeless male with pneumococcal bacteremia due to CAP, intubated and sedated. ASSESSMENT AND PLAN # Acute hypoxemic hypercarbic respiratory failure Due to RSV pneumonitis and pneumococcal pna. Intubated 12/07. - assess for extubation daily - Lung protective ventilation # CAP pneumococcal pna and RSV. S/p azithromycin - stop azithromycin - continue CTX 2 grams daily # Pneumococcal Bacteremia Presumed due to CAP. TTE w/o e/o vegetations - repeat BCx now - f/u cx will help guide abx duration # Systoic Heart Failure Unknown baseline. LVEF this admission 35%. Net 12 L positive this admission - stop maintance IVF - start lasix and KCl protocol - hold off on ACEi and BB until sepsis improves # H/o etoh abuse no clear s/sx of w/d. Monitor # Feeding - trickle feeds # Analgesia APAP, fentanyl # Sedation propofol # Thromboprophylaxis - SQ hep # Head of bed elevated # Ulcer prophylaxis - H2 gonzalo # Glucose SSI # Skin no skin breakdown # Delirium - delirium precautions Patient is critical ill due to life threatening organ dysfunction and is at high risk for decompensation and . Total critical care time, excluding procedures: 80 min EVENTS 12/07/17 intubation, bronchoscopy CX Data 12/06/17 BCx strep 3/3 bottles 12/06/17 Nasal swab - RSV+ 12/07/17 Bronch - Cx negative Subjective: Intubated and sedated Objective: Vital Signs Temp Pulse Resp BP Pulse Ox 36.9 C 56 L 17 160/95 H 98 12/09/17 13:00 12/09/17 13:00 12/09/17 13:00 12/09/17 13:00 12/09/17 13:00 Microbiology 12/07/17 07:30 Gram Stain - Final Bronchial Washing - Unspecified Laboratory Results 12/09/17 04:30 12/09/17 12:10 12/08/17 12/09/17 12/10/17 05:59 05:59 05:59 Intake Total 2792 3198 Output Total 1000 1175 2750 Balance 1792 2022 -275 I reviewed and interpreted patient's radiographic images. Improving but persistent bibasilar opacities, ET tube in place,. No expanding pneumothorax Physical Exam - Physical Exam General Appearance: obtunded, No alert EENT: PERRL/EOMI, ET tube, No scleral icterus (R), No purulent nasal drainage Neck: non-tender, supple, normal inspection Respiratory: rhonchi, No respiratory distress, No accessory muscle use Cardiac/Chest: normal peripheral pulses, edema, No gallop Abdomen: non-tender, soft, No organomegaly Male Genitalia: normal genitalia, other (Bradshaw in place) Skin: normal color, warm/dry Lymphatic: no adenopathy Extremities: normal inspection, pedal edema Neuro/Psych: cognition abnormalities (Intubated, sedated, withdraws to pain), No alert ICD10 Worksheet Patient Problems: Problems Problem Status Onset Chronic obstructive pulmonary disease with acute exacerbation Acute Pneumonia Acute Severe sepsis Acute
[2017-12-09] MEDS ORDERED: FUROSEMIDE 20 MG/2 ML VIAL IVP ONE (14:57)
[2017-12-09] MEDS ORDERED: D50W 25 GM/50 ML SYR IVP PRN (15:23)
--- NOTE | 2017-12-09 15:28 | HOSPPROG ---
Hospitalist Progress Note Assessment/Plan: Assessment: 67-year-old male presents with severe sepsis, acute on chronic hypoxic and hypercapnic respiratory failure, Strep pneumonia/bacteremia Plan: 1. Severe sepsis. Present on admission, evidenced by 3/3 qSOFA criteria (ICDS- 3) with unresponsiveness on presentation, visible respiratory distress and tachypnea, hypotension, all of which are evidence of autonomic dysregulation in the setting of infection, notably pneumonia, with end-organ failure including respiratory failure, metabolic acidosis, acute kidney injury, unresponsiveness -resolved 2. Acute on chronic hypercapnic and hypoxic respiratory failure. Evidenced by pCO2 of 50 with pH is 7.3, PaO2 of 55 despite being on 15 L non-rebreather face mask, requiring intubation -cont vent support -begin IV diuresis w/ lasix 20 bid today 3. Acute COPD exacerbation. Evidenced by diffuse expiratory wheezes and hypercapnia, most likely triggered by pneumonia -ongoing bilat exp wheezes, cont IV methylpred 125 q6 and plan to reduce dosages when resp status improved enough to consider extubation 4. Strep Pneumonia and bacteremia. Present on admission, evidenced by right lower lobe infiltrate, uStrep positive -12/06 BCx positive, repeat today for clearance -Echo w/o obvious veg -appreciate ID consult, cont CTX 2g daily 5. Metabolic acidosis. Acute, secondary to lactic acid, secondary to severe sepsis as above, stop IVF 6. Acute kidney injury. Secondary to renal hypoperfusion in the setting of severe sepsis, resolved 7. Hypertension. Chronic, hold patient's home antihypertensives 8. Hyperglycemia 2/2 Diabetes mellitus type 2 with diabetic neuropathy. Adjust from insulin gtt to ISS + lantus today 9. Acute cardiomyopathy. Suspect non-ischemic w/ EF 35%, global, RV dysfunction , likely 2/2 critical illness -plan on cardiac risk stratification s/p clinical recovery -ASA 325 in interim -check LDL, trop 10. Rhino and Enteroviral syndromes. Unclear whether initial viral precipitant predisposed his bacterial PNA -cont on isolation precautions Diet. OG trickle Prophylaxis. High risk patient, lovenox 40 Code. Full per patient, his son ANGEL in [place] is his MD POA Disposition. Anticipated discharge uncertain this time, remains critically ill 35 min of critical care time were spent with this patient, at bedside, coordinating care with Dr. Vega on ICU rounds, specifically addressing the patient's severe respiratory failure and COPD exacerbation as outlined above. Patient remains critically ill with high risk of worsening morbidity and/or mortality. Subjective: responding well to sedation, profuse diuresis w/ lasix this AM Objective: Vital Signs Temp Pulse Resp BP Pulse Ox 36.8 C 68 17 148/74 H 99 12/09/17 15:00 12/09/17 15:00 12/09/17 15:00 12/09/17 15:00 12/09/17 15:00 Microbiology 12/07/17 07:30 Gram Stain - Final Bronchial Washing - Unspecified Laboratory Results 12/09/17 04:30 12/09/17 12:10 12/08/17 12/09/17 12/10/17 05:59 05:59 05:59 Intake Total 2792 3198 Output Total 1000 1175 3100 Balance 1792 2022 -3099 - Physical Exam Constitutional: no apparent distress, not in pain, No uncomfortable Eyes: other (constricted, central pupils) Cardiovascular: systolic murmur (II/ at apex), edema (trace bilat LE), No irregularly irregular, No tachycardia Respiratory: inspiratory crackles, bronchial breath sounds (bilat ), other (on vent), No reduced air movement, No respiratory distress Gastrointestinal: distension (mild, firm) Neurologic: other (not responsive to tactile stim) ICD10 Worksheet Patient Problems: Problems Problem Status Onset Chronic obstructive pulmonary disease with acute exacerbation Acute Pneumonia Acute Severe sepsis Acute
[2017-12-09] MEDS ORDERED: HALOPERIDOL LACT 5 MG/ML INJ ONE (16:14)
[2017-12-09] MEDS: HALOPERIDOL LACT 5 MG/ML INJ IVP PRN (16:14)
[2017-12-09] MEDS ORDERED: LORazepam 2 MG/ML INJ ONE (16:46)
[2017-12-09] MEDS ORDERED: LABETALOL HCL 5 MG/ML 20 ML MDV ONE (16:54)
[2017-12-09] MEDS: ASPIRIN 325 MG TAB TUBE SCH (16:58)
[2017-12-09] MEDS ORDERED: LABETALOL HCL 5 MG/ML 20 ML MDV IV PRN ×2 (16:58→17:52)
[2017-12-09] MEDS ORDERED: ACETAMINOPHEN 650 MG/20.3 ML UDCUP TUBE PRN (17:00)
[2017-12-09] MEDS ORDERED: LORazepam 2 MG/ML INJ IV ONE (17:15)
[2017-12-09] MEDS ORDERED: LABETALOL HCL 5 MG/ML 20 ML MDV IVP ONE (17:53)
[2017-12-09] MEDS: INSULIN REGULAR HUMAN 100 UNIT/ML UNIT SC SCH (18:01)
[2017-12-09] MEDS ORDERED: niCARdipine/NACL/200 ML BAG IV ONE (18:14)
[2017-12-09] MEDS: IPRATROPIUM/ALBUTEROL 3 ML DEYVIAL IH PRN (18:16)
[2017-12-09] MEDS ORDERED: niCARdipine/NACL 200 ML IV SCH (18:30)
[2017-12-09] MEDS ORDERED: fentanYL/NACL/100 ML BAG IV ONE (21:21)
[2017-12-09] MEDS ORDERED: SUCCINYLCHOLINE CHLORIDE 200 MG/10 ML SYR IVP ONE ×2 (21:22→21:30)
[2017-12-09] MEDS ORDERED: ETOMIDATE 40 MG/20 ML INJ ONE (21:22)
[2017-12-09] MEDS ORDERED: ETOMIDATE 40 MG/20 ML INJ IV ONE (21:30)
--- NOTE | 2017-12-09 21:30 | EDPHY ---
Inpatient Procedure Narrative: 2126: I was asked by the hospitalist service to to reintubate the patient as he is impending respiratory failure. Upon my arrival to his room it is noted he is tachycardic in the 1 teens. He is hypertensive he is breathing 40 times per minute in in respiratory distress. Shallow respirations. He is unresponsive. The decision was made to emergently intubate the patient due to respiratory failure. The patient was recently intubated today extubated. Intubation procedure: The patient was appropriately positioned in the bed. The patient full cardiac monitoring during intubation. RSI medications were pulled up 20 mg IV etomidate 120 mg of succinylcholine. Lab values were checked. Normal potassium Patient was preoxygenated with a non-rebreather and high-flow nasal cannula. He had 100% oxygen saturation during intubation. A MAC 4 blade was obtained and direct visualization of the cords were seen. A 7.5 endotracheal tube was placed directly through the cords. This was directly visualized by myself. The endotracheal tube was confirmed with chest x-ray, humidified return air in the tube. Capnography for change. And direct visualization. Additionally bilateral breath sounds were appreciated. Critical Care: Total Critical Care Time Spent Managing this Patient: 25 Minutes. This time was spent Exclusively with this patient. This Care was exclusive of procedures. The Organ System/life at risk was respiratory failure This Patient was in Critical Condition because respiratory failure
[2017-12-09] MEDS: traZODone 50 MG TAB TUBE SCH (23:33)
[2017-12-09] MEDS: LABETALOL HCL 5 MG/ML 20 ML MDV IV SCH (23:38)
[2017-12-10] MEDS: INSULIN REGULAR HUMAN 100 UNIT/ML UNIT SC SCH ×4 (00:21→17:57)
[2017-12-10] MEDS: LABETALOL HCL 5 MG/ML 20 ML MDV IV SCH ×3 (02:22→12:16)
[2017-12-10] MEDS: PROPOFOL/EMULSION 100 ML IV SCH ×3 (05:47→20:07)
[2017-12-10] MEDS: LEVOTHYROXINE 50 MCG TAB TUBE SCH (05:59)
[2017-12-10] MEDS ORDERED: PROTOCOL POTASSIUM 1 DOSE MISC PRN (08:45)
[2017-12-10] MEDS ORDERED: PROTOCOL MAGNESIUM 1 DOSE IV PRN (08:45)
[2017-12-10] MEDS ORDERED: PROTOCOL K PHOSPHATE 1 DOSE IV PRN (08:45)
[2017-12-10] MEDS: methylPREDNISolone SOD SUCC 40 MG/ML VIAL IVP SCH (09:20)
[2017-12-10] MEDS: ASPIRIN 325 MG TAB TUBE SCH (09:20)
[2017-12-10] MEDS: CHLORHEXIDINE GLUCONATE 15 ML UDL PO SCH ×2 (09:20→20:58)
[2017-12-10] MEDS: FAMOTIDINE 20 MG/NACL 50 ML IV SCH ×2 (09:20→20:10)
[2017-12-10] MEDS: INSULIN GLARGINE 100 UNITS/ML UNIT SC SCH (09:35)
[2017-12-10] MEDS ORDERED: amLODIPine BESYLATE 5 MG TAB TUBE SCH (10:30)
[2017-12-10 10:52] LABS: PLATELET COUNT 219 10^3/uL (150-400)
[2017-12-10] MEDS: ENOXAPARIN 40 MG/0.4 ML SYR SC SCH (11:10)
[2017-12-10] MEDS ORDERED: POTASSIUM CL 10 MEQ TAB PO ONE (12:21)
[2017-12-10] MEDS ORDERED: POTASSIUM CL 20 MEQ/15 ML UDCUP TUBE ONE (12:30)
--- NOTE | 2017-12-10 14:22 | PCMIDPN ---
Assessment/Plan: 1. 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 Patient is on high-dose ceftriaxone (q.12 hours), which was changed from daily last night. Clinical suspicion for pneumococcal meningitis is low at this time. If CT of the head is negative, can back down to 2 g IV daily, as the q.12 dosing is indicated for meningeal disease. Endocarditis also seems less likely in light of rapid clearance of blood cultures, and lack of concerning TTE findings. Can ultimately complete therapy with an oral fluoroquinolone once he has stabilized. Will order HIV antibody testing, as well as (given his age group), an SPEP. That being said, patient has multiple risk factors for invasive pneumococcal disease, including diabetes mellitus, tobacco use disorder, and the rhino virus/enterovirus may also have increased his susceptibility to this infection. Also of note, agree with plans for CT of the chest today to further evaluate lung parenchyma; will need to watch for development of parapneumonic effusion. 2. Rhino virus/enterovirus: Continue droplet precautions as you are. 12/10/17 14:30 Subjective: Patient was extubated yesterday, then reintubated shortly thereafter when he became quickly fatigued and was not responsive to commands. Heading down for a CT of the head and chest later today. Has never had a pressor requirement. Objective: Ceftriaxone 2 g IV q.12 hours, antibiotics day 4 T-max 376 96% on 40% FiO2 Vital Signs Temp Pulse Resp BP Pulse Ox 37.6 C 65 16 136/68 H 97 12/10/17 12:00 12/10/17 12:00 12/10/17 12:00 12/10/17 12:00 12/10/17 12:00 Microbiology 12/07/17 07:30 Gram Stain - Final Bronchial Washing - Unspecified Laboratory Results 12/10/17 09:00 12/10/17 04:30 12/09/17 12/10/17 12/11/17 05:59 05:59 05:59 Intake Total 3198 1355.8 Output Total 9831 8110 Balance 2022 -6753.2 Blood cultures 1029 x 2 sets pending 1026 blood cultures 2/4 bottles with Streptococcus pneumoniae, JAMIL to ceftriaxone less than 0.0625 Respiratory pathogen PCR positive for rhino virus/enterovirus Bronchoscopy specimen with 2+ yeast - Physical Exam General Appearance: other (Intubated, sedated, neck is quite supple) Respiratory: coarse breath sounds Neck: other (Right IJ noted) Cardiac/Chest: regular rate, rhythm, No diastolic murmur, No systolic murmur Abdomen: non-tender, soft Skin: No rash, No embolic lesions ICD10 Worksheet Patient Problems: Problems Problem Status Onset Chronic obstructive pulmonary disease with acute exacerbation Acute Pneumonia Acute Severe sepsis Acute
[2017-12-10] MEDS ORDERED: IOPAMIDOL (ISOVUE 370) 100 ML BTL IV ONE (14:29)
--- NOTE | 2017-12-10 15:51 | ASMTCMCOM ---
CM Note CM Note Notes: Patient was extubated last night then had to be reintubated. Has severe sepsis, COPD, PNA. Patient told Dr. Lima that he wanted his son, ANGEL to be his MPOA. [employer] has called and spoke with son. Son reported to [employer] that patient has an address and not homeless. This needs to be sorted out when patient is awake and decisional. Maybe pt doesn't want his family to know he's homeless? Could son assist patient with housing or other care on discharge? Date Signed: 12/10/2017 03:50 PM Electronically Signed By:Alice Nogueira LCSW
--- NOTE | 2017-12-10 16:18 | HOSPPROG ---
Hospitalist Progress Note Assessment/Plan: Assessment: 67-year-old male presents with severe sepsis, acute on chronic hypoxic and hypercapnic respiratory failure, Strep pneumonia/bacteremia Plan: 1. Severe sepsis. Present on admission, evidenced by 3/3 qSOFA criteria (ICDS- 3) with unresponsiveness on presentation, visible respiratory distress and tachypnea, hypotension, all of which are evidence of autonomic dysregulation in the setting of infection, notably pneumonia, with end-organ failure including respiratory failure, metabolic acidosis, acute kidney injury, unresponsiveness -resolved 2. Acute on chronic hypercapnic and hypoxic respiratory failure. Evidenced by pCO2 of 50 with pH is 7.3, PaO2 of 55 despite being on 15 L non-rebreather face mask, requiring re-intubation 12/09 PM -cont vent support -cont IV diuresis -getting CT chest to eval for underlying ILD 3. Acute COPD exacerbation. Evidenced by diffuse expiratory wheezes and hypercapnia, most likely triggered by pneumonia -ongoing bilat exp wheezes, cont IV methylpred 125 q6 and plan to reduce dosages when resp status improved enough to consider extubation 4. Strep Pneumonia and bacteremia. Present on admission, evidenced by right lower lobe infiltrate, uStrep positive -12/06 BCx positive, repeat pending -Echo w/o obvious veg -appreciate ID consult, cont CTX 2g daily 5. Metabolic acidosis. Acute, secondary to lactic acid, resolved 6. Acute kidney injury. Secondary to renal hypoperfusion in the setting of severe sepsis, resolved 7. Hypertension. Chronic, initiate patient's home amlodipine, off nicardipine gtt 8. Hyperglycemia 2/2 Diabetes mellitus type 2 with diabetic neuropathy. Adjusted from insulin gtt to ISS + lantus 9. Acute systolic CHF w/ cardiomyopathy. Suspect non-ischemic w/ EF 35%, global , RV dysfunction, likely 2/2 critical illness -plan on cardiac risk stratification s/p clinical recovery -ASA 325 in interim -get CTA head to eval for CVA given acute changes last night -net neg 8kg LOS 10. Rhino and Enteroviral syndromes. Unclear whether initial viral precipitant predisposed his bacterial PNA -cont on isolation precautions Diet. OG trickle Prophylaxis. High risk patient, lovenox 40 Code. Full per patient, his son ANGEL in [place] is his MD POA Disposition. Anticipated discharge uncertain this time, remains critically ill 30 min of critical care time were spent with this patient, at bedside, coordinating care with Dr. Vega on ICU rounds, specifically addressing the patient's severe respiratory failure and COPD exacerbation as outlined above, as well as systolic CHF requiring re-intubation. Patient remains critically ill with high risk of worsening morbidity and/or mortality. Subjective: reintubated last night, OG TF restarted Objective: Vital Signs Temp Pulse Resp BP Pulse Ox 37.5 C 79 18 136/68 H 97 12/10/17 12:00 12/10/17 12:00 12/10/17 12:00 12/10/17 12:00 12/10/17 12:00 Microbiology 12/07/17 07:30 Gram Stain - Final Bronchial Washing - Unspecified Laboratory Results 12/10/17 09:00 12/10/17 04:30 12/09/17 12/10/17 12/11/17 05:59 05:59 05:59 Intake Total 3198 1355.8 Output Total 1175 8110 Balance 2022 -6753.2 - Physical Exam Constitutional: chronically ill appearing, unkempt, other (sedated), No uncomfortable Eyes: other (reactive pupils, not tracking) Cardiovascular: systolic murmur (II/ at apex), edema (trace bilat LE), No irregularly irregular, No tachycardia Respiratory: reduced air movement (R lateral), expiratory wheeze (faint bilat), inspiratory crackles (bilat bases), other (on vent), No bronchial breath sounds Gastrointestinal: normoactive bowel sounds, distension (mild) Psychiatric: other (sedated), No agitated ICD10 Worksheet Patient Problems: Problems Problem Status Onset Severe sepsis Acute Pneumonia Acute Chronic obstructive pulmonary disease with acute exacerbation Acute
--- NOTE | 2017-12-10 16:20 | SUROPNOTE ---
[facility] Operative Report - Surgery Procedure: Left arterial line placement with ultrasound guidance Physician: Dr. Jasiel Vega Anesthesiologist: N/A Anesthesia Type: N/A Indication: respiratory failure requiring frequent ABGs Consent: The patient was counseled as to the risks, benefits, and alternatives to the procedure and they agreed to proceed. Signed consent was obtained and placed into chart. Time-Out: Prior to the procedure, time-out was performed to verify patient's name, date of , correct procedure, correct side, correct site, correct patient position, correct radiographic data, and special equipment required. Pre-Op Dx: Acute hypoxemic respiratory failure Post-Op Dx: Acute hypoxemic respiratory failure Medications: None Description: Hand hygiene was perfomed. The site was selected as the optimal site for procedure, given considerations of sterility and safety. The left radial wrist region was prepped with Chloraprep prior to catheter insertion and with maximal sterile precautions (including gown, sterile gloves, mask, cap, and large sterile draping). Under real-time ultrasound imaging, the radial artery was visualized and entered with a 20 gauge catheter over the needle -> wire passed through needle into artery -> passage of catheter into radial artery. Catheter was secured in place, sutured, and dressed. Arterial waveform was noted from the transduced pressure signal. EBL: <1ml Complications: none Specimens Sent: none Implants: N/A F/U: routine arterial line care S Valentin Vega MD Pulmonary and Critical Care Medicine Pager [phone]
[2017-12-10] MEDS ORDERED: amLODIPine BESYLATE 5 MG TAB TUBE ONE (16:32)
[2017-12-10 17:06] LABS: HIV TYPE 1 AND 2 NEGATIVE (NEGATIVE)
--- NOTE | 2017-12-10 17:11 | PDINTPN ---
Hosiery Pairer Progress Note Assessment/Plan: Assessment and Plan 67-year-old homeless male with pneumococcal bacteremia due to CAP, intubated and sedated. ASSESSMENT AND PLAN # Acute hypoxemic hypercarbic respiratory failure Due to RSV pneumonitis and pneumococcal pna. With underlying COPD and fibrotic lung disease. Intubated 12/07, failed extubation and reintubated - assess for extubation daily - Lung protective ventilation # combined COPD and pulmonary fibrosis Long-term smoking history, fibrotic changes in the right lung base most likely represent sequela of prior infection/aspiration and not true IPF. No intervention at this junction # AECOPD Due to RSV pneumonitis and pneumococcal pneumonia. - continue methylprednisone, nebs, antibiotics # CAP pneumococcal pna and RSV. Azithromycin stopped 12/09/17 - stop azithromycin - continue CTX 2 grams daily # parapneumonic effusion Small. Will follow with imaging # Pneumococcal Bacteremia Presumed due to CAP. TTE w/o e/o vegetations. - repeat BCx now - f/u cx will help guide abx duration, anticipate 2 weeks total course - appreciate ID input - will remove central line in place PICC once cultures result negative # Systoic Heart Failure Unknown baseline. LVEF this admission 35%. Net 12 L positive this admission. - continue diuresis - KCl protocol - hold off on ACEi and BB until sepsis improves # Hypertension - restart home antihypertensives - nicardipine as needed for SBP >180, wean once amlodipine reaches steady state # H/o etoh abuse no clear s/sx of w/d. Monitor # history of CVA and TBI Significant encephalomalacia and atherosclerosis on CTA head from 12/10/2017. - aspirin, statin # Feeding - tube feeds # Analgesia APAP, fentanyl # Sedation propofol # Thromboprophylaxis - SQ hep # Head of bed elevated # Ulcer prophylaxis - H2 gonzalo # Glucose SSI # Skin no skin breakdown # Delirium - delirium precautions # next of kin Liang Ledesma updated daily and being called for consents. He understands his father's prognosis is guarded. He will likely visit from [place] in the coming week Patient is critical ill due to life threatening organ dysfunction and is at high risk for decompensation and . Total critical care time, excluding procedures: 85 min EVENTS 12/07/17 intubation, bronchoscopy, 12/10/17 intubation, arterial line placement CX Data 12/06/17 BCx strep 3/ bottles 12/06/17 Nasal swab - RSV+ 12/07/17 Bronch - Cx negative 12/09/17 BCx NGTD Subjective: Patient was extubated to BiPAP yesterday after spontaneous breathing trial with a low RSBI and good tidal volumes. However throughout the night patient became increasingly tachycardic and hypertensive and tachypneic. His oxygen saturations were maintained during this time but his mental status was progressively worse and he appeared more respiratory distress and was intubated overnight. Arterial line was placed this afternoon. Patient underwent a CT chest and CTA head. his son was updated Objective: Vital Signs Temp Pulse Resp BP Pulse Ox 37.5 C 74 22 H 136/68 H 98 12/10/17 16:27 12/10/17 16:27 12/10/17 16:27 12/10/17 12:00 12/10/17 16:27 Microbiology 12/07/17 07:30 Gram Stain - Final Bronchial Washing - Unspecified Laboratory Results 12/10/17 09:00 12/10/17 04:30 12/09/17 12/10/17 12/11/17 05:59 05:59 05:59 Intake Total 3198 1355.8 Output Total 1175 8110 Balance 2022 6753.2 I reviewed and interpreted patient's imaging. CT chest with small right parapneumonic effusion lower lobe consolidation as well as lingular ground- glass middle lobe collapse. Right lower lobe fibrotic changes with increased interseptal thickening. CTA head with encephalomalacia without any clear occlusion. Significant atherosclerotic disease ICD10 Worksheet Patient Problems: Problems Problem Status Onset Severe sepsis Acute Pneumonia Acute Chronic obstructive pulmonary disease with acute exacerbation Acute
[2017-12-10] MEDS: traZODone 50 MG TAB TUBE SCH (20:11)
[2017-12-10] MEDS: HALOPERIDOL LACT 5 MG/ML INJ IVP PRN (20:57)
[2017-12-10] MEDS: fentaNYL/NACL 100 ML IV SCH (20:59)
[2017-12-10] MEDS: niCARdipine/NACL 200 ML IV SCH (21:12)
[2017-12-10] MEDS ORDERED: POTASSIUM CL 20 MEQ/15 ML UDCUP PO ONE (21:30)
[2017-12-11] MEDS: INSULIN REGULAR HUMAN 100 UNIT/ML UNIT SC SCH ×4 (00:04→18:45)
[2017-12-11] MEDS: PROPOFOL/EMULSION 100 ML IV SCH ×3 (03:31→21:03)
[2017-12-11] MEDS: niCARdipine/NACL 200 ML IV SCH ×2 (05:01→11:39)
[2017-12-11] MEDS: LEVOTHYROXINE 50 MCG TAB TUBE SCH (05:01)
[2017-12-11 05:31] LABS: PLATELET COUNT 233 10^3/uL (150-400)
[2017-12-11] MEDS ORDERED: POTASSIUM CL 20 MEQ/15 ML UDCUP TUBE ONE (08:15)
[2017-12-11] MEDS ORDERED: amLODIPine BESYLATE 5 MG TAB TUBE SCH (09:00)
[2017-12-11] MEDS: methylPREDNISolone SOD SUCC 40 MG/ML VIAL IVP SCH (09:38)
[2017-12-11] MEDS: INSULIN GLARGINE 100 UNITS/ML UNIT SC SCH (09:38)
[2017-12-11] MEDS: FAMOTIDINE 20 MG TAB TUBE SCH ×2 (09:39→19:37)
[2017-12-11] MEDS: ENOXAPARIN 40 MG/0.4 ML SYR SC SCH (09:39)
[2017-12-11] MEDS: ASPIRIN 325 MG TAB TUBE SCH (09:39)
[2017-12-11] MEDS: CHLORHEXIDINE GLUCONATE 15 ML UDL PO SCH ×2 (09:39→19:42)
[2017-12-11] MEDS: ATORVASTATIN CALCIUM 40 MG TAB TUBE SCH (09:39)
[2017-12-11] MEDS ORDERED: DEXMEDETOMIDINE HCL 400 MCG in NS 100 ML IV SCH (11:00)
[2017-12-11] MEDS: FAMOTIDINE 20 MG/NACL 50 ML IV SCH (11:53)
--- NOTE | 2017-12-11 12:29 | PDINTPN ---
Natural Gas Engineer Progress Note Assessment/Plan: Assessment and Plan 67-year-old homeless male with pneumococcal bacteremia due to CAP, intubated and sedated. ASSESSMENT AND PLAN # Acute hypoxemic hypercarbic respiratory failure Due to RSV pneumonitis and pneumococcal pna. With underlying COPD and fibrotic lung disease. Intubated 12/07, failed extubation and reintubated - assess for extubation daily - Lung protective ventilation # combined COPD and pulmonary fibrosis Long-term smoking history, fibrotic changes in the right lung base most likely represent sequela of prior infection/aspiration and not true IPF. No intervention at this junction # RLL infiltrate vs mass Small infiltrate seen on CT chest from 2016. Given some smoking history may be malignancy. Will defer further workup until clinically improved and as an outpatient. Needs repeat CT 6 weeks after discharge # AECOPD Due to RSV pneumonitis and pneumococcal pneumonia. - continue methylprednisone, nebs, antibiotics # Encephalopathy Mixed etilology - critical illness, delirium, prior CVA. - delirium precautions, treat underlying pathology - transition to precedex # CAP pneumococcal pna and RSV. Azithromycin stopped 12/09/17 - continue CTX 2 grams daily # parapneumonic effusion Small. Will follow with serial imaging # Pneumococcal Bacteremia Presumed due to CAP. TTE w/o e/o vegetations. Repeat BCx negative - f/u cx will help guide abx duration, anticipate 2 weeks total course - appreciate ID input - will remove central line and place PICC once cultures result negative # Systoic Heart Failure Unknown baseline. LVEF this admission 35%. Net 12 L positive this admission. - continue diuresis - KCl protocol - hold off on ACEi and BB until sepsis improves # Hypertension - restart home antihypertensives - nicardipine as needed for SBP >180, wean once amlodipine reaches steady state # H/o etoh abuse no clear s/sx of w/d. Monitor # history of CVA and TBI Significant encephalomalacia and atherosclerosis on CTA head from 12/10/2017. - aspirin, statin # Feeding - tube feeds # Analgesia APAP, fentanyl # Sedation propofol, precedex # Thromboprophylaxis - SQ hep # Head of bed elevated # Ulcer prophylaxis - H2 gonzalo # Glucose SSI # Skin no skin breakdown # Delirium - delirium precautions # next of kin Liang Ledesma updated daily and being called for consents. He understands his father's prognosis is guarded. He will likely visit from [place] in the coming week Patient is critical ill due to life threatening organ dysfunction and is at high risk for decompensation and . Total critical care time, excluding procedures: 80 min EVENTS 12/07/17 intubation, bronchoscopy, 12/10/17 intubation, arterial line placement CX Data 12/06/17 BCx strep 3/3 bottles 12/06/17 Nasal swab - RSV+ 12/07/17 Bronch - Cx negative 12/09/17 BCx NGTD Subjective: Patient continues to diurese well. CT chest yesterday with small parapneumonic effusion lung parenchyma with infiltrate traits consistent with infection as well as his emphysema and mellitus changes and basilar pulmonary fibrosis. Failed spontaneous breathing trial yesterday. Blood pressure remains an issue, required IV vasodilator, still encephalopathic. Objective: Vital Signs Temp Pulse Resp BP Pulse Ox 37.4 C 92 25 H 144/59 H 96 12/11/17 11:00 12/11/17 11:00 12/11/17 12:00 12/11/17 12:00 12/11/17 12:00 Microbiology 12/07/17 07:30 Gram Stain - Final Bronchial Washing - Unspecified Laboratory Results 12/11/17 05:15 12/11/17 05:15 12/10/17 12/11/17 12/12/17 05:59 05:59 05:59 Intake Total 1355.8 2115.6 Output Total 8110 2950 Balance -6754.2 -834.4 Reviewed an diplomatic interpreter patient's radiographic images. Chest x-ray from 2017 with improved aeration and less pulmonary edema. Physical Exam - Physical Exam General Appearance: mild distress EENT: ET tube, No scleral icterus (L), No pale conjunctiva (R), No anisocoria, No purulent nasal drainage Neck: No non-tender, No supple Respiratory: rhonchi, other (Mechanical breath sounds. Improved aeration from yesterday) Abdomen: non-tender, soft Male Genitalia: deferred Rectal: deferred Skin: normal color, warm/dry Extremities: No pedal edema Neuro/Psych: other (Open denies, tracking, withdraws to pain) ICD10 Worksheet Patient Problems: Problems Problem Status Onset Chronic obstructive pulmonary disease with acute exacerbation Acute Pneumonia Acute Severe sepsis Acute
[2017-12-11] MEDS: ALBUTEROL 60 PUFFS/8 GM MDI IH SCH ×3 (13:10→20:19)
[2017-12-11] MEDS: fentaNYL 100 MCG/2 ML INJ IVP PRN (13:22)
[2017-12-11] MEDS: acetaZOLAMIDE 250 MG TAB PO SCH ×2 (13:33→19:37)
--- NOTE | 2017-12-11 17:58 | HOSPPROG ---
Hospitalist Progress Note Assessment/Plan: Assessment: 67-year-old male presents with severe sepsis, COPD, acute on chronic hypoxic and hypercapnic respiratory failure, Strep pneumonia/bacteremia c/b reintubation and ongoing resp failure. Plan: # Acute on chronic hypercapnic and hypoxic respiratory failure. Requiring reintubation and cont vent support -ABG w/ stabilization of pH/pCO2 -trial wean, lighten sedation, transition over to precedex gtt support # Acute systolic CHF w/ cardiomyopathy. Suspect non-ischemic w/ EF 35%, global, RV dysfunction, likely 2/2 critical illness -plan on cardiac risk stratification s/p clinical recovery -ASA 325 in interim -net neg 800ml o/n, neg 10.5kg LOS -adjust to acetozolamide given contraction alkalosis # Acute COPD exacerbation. Evidenced by diffuse expiratory wheezes and hypercapnia, most likely triggered by pneumonia -ongoing bilat bronch breath sounds, cont IV methylpred 40 daily -cont PRN nebs # Strep Pneumonia and bacteremia. Present on admission, evidenced by right lower lobe infiltrate, uStrep positive -12/06 BCx positive, repeat neg -Echo w/o obvious veg -appreciate ID consult, cont CTX 2g daily # Suspected underlying ILD. CT w/ interstitial infiltrates + possible RLL peripheral malignancy -d/w Dr Vega on rounds, we agree w/ need outpt f/u CT in approx 6 weeks and either bronch or IR biopsy depending on resolution # Severe sepsis. Present on admission, 2/2 pneumonia, resolved # Metabolic acidosis. Acute, secondary to lactic acid, resolved # Acute kidney injury. Secondary to renal hypoperfusion in the setting of severe sepsis, resolved # Hypertension. Chronic, uptitrated home amlodipine to 10mg, ongoing nicardipine gtt given CHF # Hyperglycemia 2/2 Diabetes mellitus type 2 with diabetic neuropathy. Adjusted from insulin gtt to ISS + lantus # Encephalomalacia. Unknown cog baseline, suspect he will have persistent cog defects s/p extubation # Rhino and Enteroviral syndromes. Unclear whether initial viral precipitant predisposed his bacterial PNA -cont on isolation precautions Diet. OG Prophylaxis. High risk patient, lovenox 40 Code. Full per patient, his son ANGEL in [place] is his MD POA Disposition. Anticipated discharge uncertain this time, remains critically ill 35 min of critical care time were spent with this patient, at bedside, coordinating care with Dr. Vega on ICU rounds, specifically addressing the patient's severe respiratory failure and COPD exacerbation as outlined above, as well as systolic CHFw/ trial wean today. Patient remains critically ill with high risk of worsening morbidity and/or mortality. Subjective: patient agitated w/ propfol wean Objective: Vital Signs Temp Pulse Resp BP Pulse Ox 37.9 C 51 L 17 127/47 H 99 12/11/17 16:00 12/11/17 17:00 12/11/17 17:00 12/11/17 17:00 12/11/17 17:00 Microbiology 12/07/17 07:30 Gram Stain - Final Bronchial Washing - Unspecified Laboratory Results 12/11/17 05:15 12/11/17 05:15 12/10/17 12/11/17 12/12/17 05:59 05:59 05:59 Intake Total 1355.8 2115.6 1126 Output Total 8110 2950 850 Balance -6754.2 -834.4 276 - Physical Exam Constitutional: chronically ill appearing, obese, uncomfortable Cardiovascular: systolic murmur (I/ at sternum), JVD, tachycardia, edema ( trace bilat LE), No irregularly irregular Respiratory: bronchial breath sounds, rhonchi (on insp bilat), No expiratory wheeze Gastrointestinal: normoactive bowel sounds, distension (mild) Psychiatric: encephalopathic, agitated, other (intermittently following 1-step commands) ICD10 Worksheet Patient Problems: Problems Problem Status Onset Chronic obstructive pulmonary disease with acute exacerbation Acute Pneumonia Acute Severe sepsis Acute
--- NOTE | 2017-12-11 18:49 | PCMIDPN ---
Assessment/Plan: Assessment/Plan: * Severe sepsis due to Streptococcus pneumoniae bacteremia associated with pneumonia: Slow clinical improvement but remains intubated with mechanical ventilation for respiratory support. Repeat blood culture show clearing of bacteremia. Continue ceftriaxone 2 g IV daily. Preceding rhino virus/ enteroviral infection may have predisposed to invasive pneumococcal disease. As previously outlined by Dr. Adame, several other risk factors for invasive pneumococcal disease also present. 12/11/17 18:46 12/11/17 18:47 Subjective: Patient intubated and sedated. Nursing staff notes agitated when sedation weaned. Objective: Vital Signs Temp Pulse Resp BP Pulse Ox 37.7 C 54 L 18 124/49 H 97 12/11/17 18:00 12/11/17 18:00 12/11/17 18:00 12/11/17 18:00 12/11/17 18:00 Microbiology 12/07/17 07:30 Gram Stain - Final Bronchial Washing - Unspecified Laboratory Results 12/11/17 05:15 12/10/17 12/11/17 12/12/17 05:59 05:59 05:59 Intake Total 1355.8 2115.6 1126 Output Total 8110 2950 850 [facility] -6754.2 -834.4 276 Ceftriaxone # 5 Blood cultures 12/09/2017 no growth Blood cultures 12/06/2017 hwang susceptible Streptococcus pneumoniae - Physical Exam General Appearance: non-toxic, other (Intubated, sedated) EENT: ET Tube, No scleral icterus, No conjunctival petechiae Respiratory: lungs clear, No respiratory distress Neck: supple, No meningismus Cardiac/Chest: bradycardia Extremities: No inflammation Abdomen: non-tender, No distended Skin: No embolic lesions ICD10 Worksheet Patient Problems: Problems Problem Status Onset Chronic obstructive pulmonary disease with acute exacerbation Acute Pneumonia Acute Severe sepsis Acute
[2017-12-11] MEDS ORDERED: POTASSIUM CL 10 MEQ TAB PO ONE (19:31)
[2017-12-11] MEDS: traZODone 50 MG TAB TUBE SCH (19:36)
[2017-12-12] MEDS: ALBUTEROL 60 PUFFS/8 GM MDI IH SCH ×3 (00:17→07:57)
[2017-12-12] MEDS: INSULIN REGULAR HUMAN 100 UNIT/ML UNIT SC SCH ×5 (00:36→23:29)
[2017-12-12] MEDS: fentaNYL 100 MCG/2 ML INJ IVP PRN (02:28)
[2017-12-12] MEDS: niCARdipine/NACL 200 ML IV SCH ×3 (02:32→09:28)
[2017-12-12] MEDS: PROPOFOL/EMULSION 100 ML IV SCH (04:08)
[2017-12-12] MEDS: HALOPERIDOL LACT 5 MG/ML INJ IVP PRN (04:42)
[2017-12-12] MEDS ORDERED: POTASSIUM CL 20 MEQ/15 ML UDCUP TUBE ONE (05:00)
[2017-12-12] MEDS: LEVOTHYROXINE 50 MCG TAB TUBE SCH (05:44)
--- NOTE | 2017-12-12 09:05 | ASMTCMCOM ---
CM Note CM Note Notes: I spoke with Willian, engineering program manager at the [facility], who confirmed that patient does stay at a reserved bed there. He also has a car. Both Willian and the ICU intensivists have been in contact w patient's son ANGEL who says he is going to visit from [place] but cannot say when. Patient is still intubated and unable to give more background at this time. Case Management will follow. Date Signed: 12/12/2017 09:04 AM Electronically Signed By:Patricia Rosario RN
[2017-12-12] MEDS: ATORVASTATIN CALCIUM 40 MG TAB TUBE SCH ×2 (09:12→14:15)
[2017-12-12] MEDS: ASPIRIN 325 MG TAB TUBE SCH ×2 (09:12→14:15)
[2017-12-12] MEDS: CHLORHEXIDINE GLUCONATE 15 ML UDL PO SCH (09:12)
[2017-12-12] MEDS: ENOXAPARIN 40 MG/0.4 ML SYR SC SCH (09:12)
[2017-12-12] MEDS: acetaZOLAMIDE 250 MG TAB PO SCH (09:13)
[2017-12-12] MEDS: FAMOTIDINE 20 MG TAB TUBE SCH ×2 (09:14→14:16)
[2017-12-12] MEDS: INSULIN GLARGINE 100 UNITS/ML UNIT SC SCH (09:16)
[2017-12-12] MEDS: methylPREDNISolone SOD SUCC 40 MG/ML VIAL IVP SCH (09:16)
--- NOTE | 2017-12-12 09:50 | HOSPPROG ---
Hospitalist Progress Note Assessment/Plan: 67-year-old male presents with severe sepsis, COPD, acute on chronic hypoxic and hypercapnic respiratory failure, Strep pneumonia/bacteremia c/b reintubation and ongoing resp failure. Plan: # Acute on chronic hypercapnic and hypoxic respiratory failure. Requiring reintubation and cont vent support -Extubated this AM, continue to wean 02 as tolerated # Acute systolic CHF w/ cardiomyopathy. Suspect non-ischemic w/ EF 35%, global, RV dysfunction, likely 2/2 critical illness -plan on cardiac risk stratification s/p clinical recovery -ASA 325 in interim -net neg 800ml o/n, neg 10.5kg LOS -adjust to acetozolamide given contraction alkalosis # Acute COPD exacerbation. Evidenced by diffuse expiratory wheezes and hypercapnia, most likely triggered by pneumonia -ongoing bilat bronch breath sounds, discontinuing steroids today -cont PRN nebs # Strep Pneumonia and bacteremia. Present on admission, evidenced by right lower lobe infiltrate, uStrep positive -12/06 BCx positive, repeat neg -Echo w/o obvious veg -appreciate ID consult, cont CTX 2g daily for 14 days, PICC to be placed today # Suspected underlying ILD. CT w/ interstitial infiltrates + possible RLL peripheral malignancy -Need outpt f/u CT in approx 6 weeks and either bronch or IR biopsy depending on resolution # Severe sepsis. Present on admission, 2/2 pneumonia, resolved # Metabolic acidosis. Acute, secondary to lactic acid, resolved # Acute kidney injury. Secondary to renal hypoperfusion in the setting of severe sepsis, resolved # Hypertension. Chronic, uptitrated home amlodipine to 10mg, ongoing nicardipine gtt given CHF # Hyperglycemia 2/2 Diabetes mellitus type 2 with diabetic neuropathy. Adjusted from insulin gtt to ISS + lantus # Encephalomalacia. Unknown cog baseline, suspect he will have persistent cog defects s/p extubation # Rhino and Enteroviral syndromes. Unclear whether initial viral precipitant predisposed his bacterial PNA -cont on isolation precautions Diet. OG Prophylaxis. High risk patient, lovenox 40 Code. Full per patient, his son ANGEL in [place] is his MD POA Disposition. Anticipated discharge uncertain this time, remains critically ill 35 min of critical care time were spent with this patient, at bedside, coordinating care with Dr. Vega on ICU rounds. Patient remains critically ill with high risk of worsening morbidity and/or mortality. Subjective: Patient extubated this morning Objective: Vital Signs Temp Pulse Resp BP Pulse Ox 37.5 C 75 26 H 160/50 H 94 12/12/17 08:00 12/12/17 08:00 12/12/17 08:00 12/12/17 09:12 12/12/17 08:00 Laboratory Results 12/11/17 05:15 12/12/17 04:20 12/11/17 12/12/17 12/13/17 05:59 05:59 05:59 Intake Total 2115.6 2310 Output Total 2950 1750 Balance -834.4 560 - Physical Exam Constitutional: chronically ill appearing Eyes: anicteric sclera Ears, Nose, Mouth, Throat: dry mucous membranes Cardiovascular: regular rate and rhythym Respiratory: reduced air movement Gastrointestinal: soft, non-tender abdomen Genitourinary: [place] in urethra Skin: warm Musculoskeletal: generalized weakness Neurologic: No AAOx3 Psychiatric: No interacting appropriately ICD10 Worksheet Patient Problems: Problems Problem Status Onset Chronic obstructive pulmonary disease with acute exacerbation Acute Pneumonia Acute Severe sepsis Acute
[2017-12-12] MEDS ORDERED: ALTEPLASE 2 MG VIAL IVP PRN (10:19)
[2017-12-12] MEDS ORDERED: predniSONE 10 MG TAB PO SCH (10:30)
--- NOTE | 2017-12-12 10:37 | PCMIDPN ---
Assessment/Plan: 1. Invasive pneumococcal disease with bacteremia and pneumonia: Slowly getting better. Extubated this morning, and seems to be stable. Blood cultures cleared rapidly; will have PICC line placed today and right IJ removed. Continue ceftriaxone 2 g daily as is for now to complete 14 days of therapy. HIV testing and SPEP negative. 2. Rhino virus/enterovirus: Continue droplet precautions as you are. 3. Diarrhea: C diff sent and is pending. It should be noted however that the patient received 2 senna last night. This has been discontinued. Subjective: Just extubated an hour ago. Holding his own. Responds to simple commands, such as"open your mouth."Apparently was having some diarrhea, but on further probing, patient received senna last night. Objective: Ceftriaxone 2 g IV daily day 6 T-max 37.7 degrees 94% on 35% FiO2 Vital Signs Temp Pulse Resp BP Pulse Ox 37.5 C 75 26 H 160/50 H 94 12/12/17 08:00 12/12/17 08:00 12/12/17 08:00 12/12/17 09:12 12/12/17 08:00 Laboratory Results 12/11/17 05:15 12/12/17 04:20 12/11/17 12/12/17 12/13/17 05:59 05:59 05:59 Intake Total 2115.6 2310 Output Total 2950 1750 Balance -834.4 560 1029 blood cultures remain negative - Physical Exam General Appearance: other (No apparent distress. Responds to simple commands, but not talking.) EENT: pharynx normal, No thrush Respiratory: crackles, wheezing, coarse breath sounds Neck: other (Right IJ in place) Cardiac/Chest: tachycardia Abdomen: non-tender, soft Skin: No rash ICD10 Worksheet Patient Problems: Problems Problem Status Onset Chronic obstructive pulmonary disease with acute exacerbation Acute Pneumonia Acute Severe sepsis Acute
--- NOTE | 2017-12-12 12:53 | PDINTPN ---
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 ASSESSMENT AND PLAN # Acute hypoxemic hypercarbic respiratory failure Due to RSV pneumonitis and pneumococcal pna. With underlying COPD and fibrotic lung disease. Intubated 12/07, failed extubation and reintubated - assess for extubation daily - Lung protective ventilation # combined COPD and pulmonary fibrosis Long-term smoking history, fibrotic changes in the right lung base most likely represent sequela of prior infection/aspiration and not true IPF. No intervention at this junction # RLL infiltrate vs mass Small infiltrate seen on CT chest from 2016. Given some smoking history may be malignancy. Will defer further workup until clinically improved and as an outpatient. Needs repeat CT 6 weeks after discharge # AECOPD Due to RSV pneumonitis and pneumococcal pneumonia. - continue methylprednisone, nebs, antibiotics # Encephalopathy Mixed etilology - critical illness, delirium, prior CVA. - delirium precautions, treat underlying pathology - transition to precedex # CAP pneumococcal pna and RSV. Azithromycin stopped 12/09/17 - continue CTX 2 grams daily # parapneumonic effusion Small. Will follow with serial imaging # Pneumococcal Bacteremia Presumed due to CAP. TTE w/o e/o vegetations. Repeat BCx negative - continue CTX to complete 14 day total course - RIJ out today, place PICC - appreciate ID input # Systoic Heart Failure Unknown baseline. LVEF this admission 35%. Net 12 L positive this admission. - continue diuresis - KCl protocol - asa, statin, bb # Hypertension - home antihypertensives # H/o etoh abuse no clear s/sx of w/d. Monitor # history of CVA and TBI Significant encephalomalacia and atherosclerosis on CTA head from 12/10/2017. - aspirin, statin # Feeding - speech eval once extubated # Analgesia APAP, fentanyl # Sedation propofol, precedex # Thromboprophylaxis - SQ hep # Head of bed elevated # Ulcer prophylaxis - H2 gonzalo # Glucose SSI # Skin no skin breakdown # Delirium - delirium precautions # next of kin Liang Ledesma updated daily and being called for consents. He understands his father's prognosis is guarded. He will likely visit from [place] in the coming week Patient is critical ill due to life threatening organ dysfunction and is at high risk for decompensation and . Total critical care time, excluding procedures: 83 min EVENTS 12/07/17 intubation, bronchoscopy, 12/10/17 intubation, arterial line placement CX Data 12/06/17 BCx strep 3/3 bottles 12/06/17 Nasal swab - RSV+ 12/07/17 Bronch - Cx negative 12/09/17 BCx NGTD 12/12/17 0930 Subjective: Did okay on pressure support yesterday, however RSBI continue to increased was placed back on ventilator overnight. Patient had 2 loose stools in the setting of being prescribed senna. C diff was sent. This is subsequently DC this morning. unable to obtain review of systems d/t mental status Objective: Vital Signs Temp Pulse Resp BP Pulse Ox 37.5 C 92 22 H 147/70 H 89 L 12/12/17 08:00 12/12/17 12:00 12/12/17 12:00 12/12/17 12:00 12/12/17 12:00 Laboratory Results 12/11/17 05:15 12/12/17 04:20 12/11/17 12/12/17 12/13/17 05:59 05:59 05:59 Intake Total 2115.6 2310 Output Total 2950 1750 750 Balance -834.4 560 -750 I reviewed interpreted patient's imaging. Interval improvement in airspace and interstitial opacification Physical Exam - Physical Exam General Appearance: obtunded EENT: PERRL/EOMI, ET tube, No scleral icterus (L), No pale conjunctiva (R) Neck: non-tender, supple Respiratory: rales, No respiratory distress, No accessory muscle use Cardiac/Chest: regular rate, rhythm, No edema, No gallop Abdomen: non-tender, soft Male Genitalia: other (Bradshaw in place, no scrotal edema) Skin: normal color, warm/dry Extremities: No pedal edema, No swelling Neuro/Psych: other (Intubated sedated, opening eyes and minimally following commands) ICD10 Worksheet Patient Problems: Problems Problem Status Onset Chronic obstructive pulmonary disease with acute exacerbation Acute Pneumonia Acute Severe sepsis Acute
[2017-12-12] MEDS: CARVEDILOL 6.25 MG TAB PO SCH ×2 (14:19→20:38)
[2017-12-12] MEDS: ONDANSETRON 4 MG/2 ML VIAL IVP PRN (15:29)
[2017-12-12] MEDS: FAMOTIDINE 20 MG TAB PO SCH (20:37)
[2017-12-12] MEDS ORDERED: traZODone 50 MG TAB PO SCH (21:00)
[2017-12-13 05:30] LABS: PLATELET COUNT 215 10^3/uL (150-400)
[2017-12-13] MEDS: INSULIN REGULAR HUMAN 100 UNIT/ML UNIT SC SCH ×4 (05:46→23:47)
[2017-12-13] MEDS: LEVOTHYROXINE 50 MCG TAB PO SCH (06:07)
[2017-12-13] MEDS ORDERED: POTASSIUM Cl (KCl) 50 ML IV ONE (08:02)
[2017-12-13] MEDS: CARVEDILOL 6.25 MG TAB PO SCH (08:41)
[2017-12-13] MEDS: INSULIN GLARGINE 100 UNITS/ML UNIT SC SCH (09:10)
[2017-12-13] MEDS: ASPIRIN 325 MG TAB PO SCH (09:10)
[2017-12-13] MEDS: ENOXAPARIN 40 MG/0.4 ML SYR SC SCH (09:10)
[2017-12-13] MEDS: FAMOTIDINE 20 MG TAB PO SCH (09:10)
[2017-12-13] MEDS: ATORVASTATIN CALCIUM 40 MG TAB PO SCH (09:10)
[2017-12-13] MEDS ORDERED: PNEUMOC 13-VAL CONJ-DIP CRM/PF 0.5 ML SYR IM ONE (10:38)
--- NOTE | 2017-12-13 10:41 | PCMIDPN ---
Assessment/Plan: 1. Invasive pneumococcal disease with bacteremia and pneumonia: Much better! Leukocytosis resolving. Continue ceftriaxone as is to complete 14 days of therapy in the setting of concomitant bacteremia. Blood cultures cleared rapidly. Repeat liver function tests the next day or 2. 2. Rhino virus/enterovirus: Continue droplet precautions as you are. 3. Vaccines: Will give Prevnar 13 today. Will need to have Pneumovax administered as an outpatient in >/= 8 weeks. Subjective: Continues to improve. Still mildly confused. Objective: Ceftriaxone 2 g IV daily day 7 T-max 37.5 degrees 98% on 2 L Vital Signs Temp Pulse Resp BP Pulse Ox 37.0 C 52 L 12 122/46 H 98 12/13/17 04:00 12/13/17 06:00 12/13/17 06:00 12/13/17 04:00 12/13/17 06:00 Microbiology 12/07/17 07:30 Gram Stain - Final Bronchial Washing - Unspecified Laboratory Results 12/13/17 05:10 12/13/17 05:10 12/12/17 12/13/17 12/14/17 05:59 05:59 05:59 Intake Total 2310 240 Output Total 1750 1700 Balance 560 -1460 Blood cultures December 09 no growth - Physical Exam General Appearance: alert, no apparent distress EENT: No scleral icterus, No thrush Respiratory: coarse breath sounds Cardiac/Chest: regular rate, rhythm Extremities: other (PICC line right upper extremity) Abdomen: non-tender, soft Skin: No rash, No embolic lesions ICD10 Worksheet Patient Problems: Problems Problem Status Onset Chronic obstructive pulmonary disease with acute exacerbation Acute Pneumonia Acute Severe sepsis Acute
--- NOTE | 2017-12-13 12:23 | PDINTPN ---
Super[facility] [employer] Department Progress Note Assessment/Plan: Assessment and Plan 67-year-old homeless male with pneumococcal bacteremia due to CAP, intubated and sedated. ASSESSMENT AND PLAN # Acute hypoxemic hypercarbic respiratory failure Improving. Extubated 12/12/2017. Due to RSV pneumonitis and pneumococcal pna. With underlying COPD and fibrotic lung disease. - maintain sats 90-94%, - avoid hyperoxia # combined COPD and pulmonary fibrosis Long-term smoking history, fibrotic changes in the right lung base most likely represent sequela of prior infection/aspiration and not true IPF. No intervention at this junction # RLL infiltrate vs mass Small infiltrate seen on CT chest from 2016. Given some smoking history may be malignancy. Will defer further workup until clinically improved and as an outpatient. Needs repeat CT 6 weeks after discharge # AECOPD Due to RSV pneumonitis and pneumococcal pneumonia. - s/p nebs, steroids, and abx # Encephalopathy Improving. Mixed etiology - critical illness, delirium, prior CVA. - delirium precautions, treat underlying pathology - PT/OT # CAP pneumococcal pna and RSV. Azithromycin stopped 12/09/17 - continue CTX 2 grams daily - needs prevnar 13 prior to discharge # parapneumonic effusion Small. Will follow with serial imaging # Pneumococcal Bacteremia Presumed due to CAP. TTE w/o e/o vegetations. Repeat BCx negative - continue CTX to complete 14 day total course - RIJ out today, place PICC - appreciate ID input # Systoic Heart Failure Unknown baseline. LVEF this admission 35%. Suspect patient has a cup of stress cardiomyopathy. Net 12 L positive this admission. - continue diuresis - KCl protocol - asa, statin -holding beta-gonzalo secondary to bradycardia. -repeat echo as outpatient # Hypertension - continue amlodipine 10, hold for systolic BP less than 120 # H/o etoh abuse no clear s/sx of w/d. Monitor # history of CVA and TBI Significant encephalomalacia and atherosclerosis on CTA head from 12/10/2017. - aspirin, statin # Dispo Okay for PCU vs medsurg # Feeding - advance diet as tolerated per speech # Analgesia APAP # Sedation none # Thromboprophylaxis - SQ hep # Head of bed elevated # Ulcer prophylaxis - NA # Glucose SSI # Skin no skin breakdown # Delirium - delirium precautions # next of kin Liang Ledesma updated daily and being called for consents. He understands his father's prognosis is guarded. He will likely visit from [place] in the coming week EVENTS 12/07/17 intubation, bronchoscopy, 12/10/17 intubation, arterial line placement 12/12/17 extubation CX Data 12/06/17 BCx strep 3/3 bottles 12/06/17 Nasal swab - RSV+ 12/07/17 Bronch - Cx negative 12/09/17 BCx neg Subjective: Extubated yesterday, mental status continues to improve although still with difficulty with word finding. Patient denies headaches, fevers chills, chest pain or abdominal pain. Objective: Vital Signs Temp Pulse Resp BP Pulse Ox 37.0 C 52 L 12 122/46 H 98 12/13/17 04:00 12/13/17 06:00 12/13/17 06:00 12/13/17 04:00 12/13/17 06:00 Microbiology 12/07/17 07:30 Gram Stain - Final Bronchial Washing - Unspecified Laboratory Results 12/13/17 05:10 12/13/17 05:10 12/12/17 12/13/17 12/14/17 05:59 05:59 05:59 Intake Total 2310 240 Output Total 1750 1700 500 Balance 560 -1460 -500 Physical Exam - Physical Exam General Appearance: no apparent distress EENT: PERRL/EOMI, normal ENT inspection, other (Nasal cannula to be in place) Neck: full range of motion, supple Respiratory: lungs clear, normal breath sounds Cardiac/Chest: normal peripheral pulses, regular rate, rhythm Abdomen: normal bowel sounds, non-tender Rectal: deferred Skin: normal color, warm/dry Neuro/Psych: no motor/sensory deficits, alert, normal mood/affect ICD10 Worksheet Patient Problems: Problems Problem Status Onset Chronic obstructive pulmonary disease with acute exacerbation Acute Pneumonia Acute Severe sepsis Acute
--- NOTE | 2017-12-13 12:24 | HOSPPROG ---
Hospitalist Progress Note Assessment/Plan: 67-year-old male presents with severe sepsis, COPD, acute on chronic hypoxic and hypercapnic respiratory failure, Strep pneumonia/bacteremia c/b reintubation and ongoing resp failure. Plan: # Acute on chronic hypercapnic and hypoxic respiratory failure. Requiring reintubation and cont vent support -Extubated yesterday, currently on 2L NC, continue to wean 02 as tolerated # Acute systolic CHF w/ cardiomyopathy. Suspect non-ischemic w/ EF 35%, global, RV dysfunction, likely 2/2 critical illness -plan on cardiac risk stratification s/p clinical recovery -ASA 325 in interim -net neg 1.46L o/n -adjust to acetozolamide given contraction alkalosis # Acute COPD exacerbation. Evidenced by diffuse expiratory wheezes and hypercapnia, most likely triggered by pneumonia -ongoing bilat bronch breath sounds, discontinued steroids on 12/12 -cont PRN nebs # Strep Pneumonia and bacteremia. Present on admission, evidenced by right lower lobe infiltrate, uStrep positive -12/06 BCx positive, repeat neg -Echo w/o obvious veg -appreciate ID consult, cont CTX 2g daily for 14 days, PICC placed on 12/12 # Suspected underlying ILD. CT w/ interstitial infiltrates + possible RLL peripheral malignancy -Need outpt f/u CT in approx 6 weeks and either bronch or IR biopsy depending on resolution # Severe sepsis. Present on admission, 2/2 pneumonia, resolved # Metabolic acidosis. Acute, secondary to lactic acid, resolved # Acute kidney injury. Secondary to renal hypoperfusion in the setting of severe sepsis, resolved # Hypertension. Chronic, uptitrated home amlodipine to 10mg, ongoing nicardipine gtt given CHF # Hyperglycemia 2/2 Diabetes mellitus type 2 with diabetic neuropathy. Adjusted from insulin gtt to ISS + lantus # Encephalomalacia. Unknown cog baseline, suspect he will have persistent cog defects s/p extubation # Rhino and Enteroviral syndromes. Unclear whether initial viral precipitant predisposed his bacterial PNA -cont on isolation precautions Diet. OG Prophylaxis. High risk patient, lovenox 40 Code. Full per patient, his son ANGEL in [place] is his MD POA Disposition. Anticipated discharge uncertain this time, remains critically ill 35 min of critical care time were spent with this patient, at bedside, coordinating care with Dr. Vega on ICU rounds. Patient remains critically ill with high risk of worsening morbidity and/or mortality. Subjective: Patient reports no complaints this morning Objective: Vital Signs Temp Pulse Resp BP Pulse Ox 37.0 C 52 L 12 122/46 H 98 12/13/17 04:00 12/13/17 06:00 12/13/17 06:00 12/13/17 04:00 12/13/17 06:00 Microbiology 12/07/17 07:30 Gram Stain - Final Bronchial Washing - Unspecified Laboratory Results 12/13/17 05:10 12/13/17 05:10 12/12/17 12/13/17 12/14/17 05:59 05:59 05:59 Intake Total 2310 240 Output Total 1750 1700 500 Balance 560 -1460 -500 - Physical Exam Constitutional: chronically ill appearing Eyes: PERRL Ears, Nose, Mouth, Throat: moist mucous membranes Cardiovascular: regular rate and rhythym Respiratory: no respiratory distress, expiratory wheeze Gastrointestinal: soft, non-tender abdomen Skin: warm Musculoskeletal: generalized weakness Neurologic: AAOx3 Psychiatric: interacting appropriately ICD10 Worksheet Patient Problems: Problems Problem Status Onset Chronic obstructive pulmonary disease with acute exacerbation Acute Pneumonia Acute Severe sepsis Acute
[2017-12-13] MEDS ORDERED: traZODone 50 MG TAB PO PRN (12:25)
[2017-12-13] MEDS: ONDANSETRON 4 MG/2 ML VIAL IVP PRN (15:07)
[2017-12-13] MEDS ORDERED: POTASSIUM CL 10 MEQ TAB PO ONE (18:44)
[2017-12-13] MEDS: ACETAMINOPHEN 325 MG TAB PO PRN (23:42)
[2017-12-14] MEDS: IPRATROPIUM/ALBUTEROL 3 ML DEYVIAL IH PRN ×2 (00:14→21:07)
[2017-12-14] MEDS: LEVOTHYROXINE 50 MCG TAB PO SCH (06:22)
[2017-12-14] MEDS: INSULIN REGULAR HUMAN 100 UNIT/ML UNIT SC SCH ×3 (07:22→17:59)
[2017-12-14] MEDS ORDERED: POTASSIUM CL 10 MEQ TAB PO ONE (07:27)
[2017-12-14] MEDS: ACETAMINOPHEN 325 MG TAB PO PRN ×2 (07:45→20:08)
[2017-12-14] MEDS: ATORVASTATIN CALCIUM 40 MG TAB PO SCH (08:22)
[2017-12-14] MEDS: ASPIRIN 325 MG TAB PO SCH (08:22)
[2017-12-14] MEDS: ENOXAPARIN 40 MG/0.4 ML SYR SC SCH (08:22)
[2017-12-14] MEDS: INSULIN GLARGINE 100 UNITS/ML UNIT SC SCH (08:33)
--- NOTE | 2017-12-14 12:42 | HOSPPROG ---
Hospitalist Progress Note Assessment/Plan: 67-year-old male presents with severe sepsis, COPD, acute on chronic hypoxic and hypercapnic respiratory failure, Strep pneumonia/bacteremia c/b reintubation and ongoing resp failure. Plan: # Acute on chronic hypercapnic and hypoxic respiratory failure. Requiring reintubation and cont vent support -Extubated yesterday, currently on 2L NC, continue to wean 02 as tolerated # Strep Pneumonia and bacteremia. Present on admission, evidenced by right lower lobe infiltrate, uStrep positive -12/06 BCx positive, repeat neg -Echo w/o obvious veg -appreciate ID consult, cont CTX 2g daily for 14 days, PICC placed on 12/12, end date 12/24/2017 # Acute systolic CHF w/ cardiomyopathy. Suspect non-ischemic w/ EF 35%, global, RV dysfunction, likely 2/2 critical illness -plan on cardiac risk stratification s/p clinical recovery -ASA 325 in interim -net neg 1.3L o/n -will hold on further diuretics, titrate as needed # Acute COPD exacerbation. Evidenced by diffuse expiratory wheezes and hypercapnia, most likely triggered by pneumonia -ongoing bilat bronch breath sounds, discontinued steroids on 12/12 -cont PRN nebs # Suspected underlying ILD. CT w/ interstitial infiltrates + possible RLL peripheral malignancy -Need outpt f/u CT in approx 6 weeks and either bronch or IR biopsy depending on resolution # Severe sepsis. Present on admission, 2/2 pneumonia, resolved # Metabolic acidosis. Acute, secondary to lactic acid, resolved # Acute kidney injury. Secondary to renal hypoperfusion in the setting of severe sepsis, resolved # Hypertension. Chronic, uptitrated home amlodipine to 10mg # Hyperglycemia 2/2 Diabetes mellitus type 2 with diabetic neuropathy. Adjusted from insulin gtt to ISS + lantus # Encephalomalacia. Unknown cog baseline, suspect he will have persistent cog defects s/p extubation # Rhino and Enteroviral syndromes. Unclear whether initial viral precipitant predisposed his bacterial PNA -cont on isolation precautions Diet. OG Prophylaxis. High risk patient, lovenox 40 Code. Full per patient, his son ANGEL in [place] is his MD POA Disposition. Therapy recommending SNF placement, CM consulted today to work on this Subjective: Patient reports no complaints this AM Objective: Vital Signs Temp Pulse Resp BP Pulse Ox 36.6 C 70 22 H 143/95 H 93 12/14/17 11:12 12/14/17 11:12 12/14/17 11:12 12/14/17 11:12 12/14/17 11:12 Microbiology 12/07/17 07:30 Gram Stain - Final Bronchial Washing - Unspecified Laboratory Results 12/14/17 06:15 12/14/17 06:15 12/13/17 12/14/17 12/15/17 05:59 05:59 04:59 Intake Total 240 840 480 Output Total 1700 2211 200 Balance -1460 -1371 280 - Physical Exam Constitutional: chronically ill appearing Eyes: PERRL Ears, Nose, Mouth, Throat: moist mucous membranes Cardiovascular: regular rate and rhythym Respiratory: reduced air movement Gastrointestinal: soft, non-tender abdomen Skin: normal color Musculoskeletal: generalized weakness Neurologic: AAOx3 Psychiatric: interacting appropriately ICD10 Worksheet Patient Problems: Problems Problem Status Onset Chronic obstructive pulmonary disease with acute exacerbation Acute Pneumonia Acute Severe sepsis Acute
--- NOTE | 2017-12-14 12:46 | PCMIDPN ---
Assessment/Plan: # Invasive pneumococcal disease: bacteremia and RLL pneumonia with underlying lung disease. Extubated now and out of ICU, WBC improved. RLL PNA TTE w/o e/o vegetations. Repeat BCx negative 12/09 -- Continue ceftriaxone as is; 12/24 stop date of abx. # Rhino virus/enterovirus: Continue droplet precautions # Vaccines : Prevnar 13 given 12/13/17; planned pneumococcus 12/2018 --give flu shot before dc as well # Yeast in BAL: suspect colonizer meds ceftriaxone 2gm IV daily #4 Subjective: no diarrhea no abdominal pain feels fatigued appetite okay Objective: Vital Signs Temp Pulse Resp BP Pulse Ox 36.6 C 70 22 H 143/95 H 93 12/14/17 11:12 12/14/17 11:12 12/14/17 11:12 12/14/17 11:12 12/14/17 11:12 Microbiology 12/07/17 07:30 Gram Stain - Final Bronchial Washing - Unspecified Laboratory Results 12/14/17 06:15 12/14/17 06:15 12/13/17 12/14/17 12/15/17 05:59 05:59 04:59 Intake Total 240 840 480 Output Total 1700 2211 200 Balance -1460 -1371 280 - Physical Exam General Appearance: alert, no apparent distress EENT: pale conjunctiva Respiratory: wheezing, No accessory muscle use Neck: supple Cardiac/Chest: regular rate, rhythm Extremities: No pedal edema Abdomen: non-tender, soft, distended (mild) Skin: No rash Neuro/Psych: alert, depressed affect - Time Spent With Patient Time Spent with Patient: greater than 25 minutes Time Spent with Patient: Greater than 25 minutes spent on this patients care, greater than 50% of time spent counseling, educating, and coordinating care regarding the above mentioned plan. ICD10 Worksheet Patient Problems: Problems Problem Status Onset Chronic obstructive pulmonary disease with acute exacerbation Acute Pneumonia Acute Severe sepsis Acute
[2017-12-14] MEDS: ONDANSETRON 4 MG/2 ML VIAL IVP PRN (13:13)
[2017-12-14] MEDS ORDERED: PROMETHAZINE HCL 25 MG/ML INJ IVP PRN (14:18)
--- NOTE | 2017-12-14 16:28 | ASMTCMCOM ---
CM Note CM Note Notes: Attempted to speak with pt but he was fast asleep. He is homeless and stays at the [facility], he also has a car. PT/OT recommend SNF, CM sent a few referrals and will discuss with pt when he is alert. DC Plan: SNF Date Signed: 12/14/2017 04:27 PM Electronically Signed By:Cristina Galeano RN
[2017-12-15] MEDS: INSULIN REGULAR HUMAN 100 UNIT/ML UNIT SC SCH ×4 (02:28→17:28)
[2017-12-15] MEDS: LEVOTHYROXINE 50 MCG TAB PO SCH (06:12)
[2017-12-15] MEDS: IPRATROPIUM/ALBUTEROL 3 ML DEYVIAL IH PRN (06:36)
[2017-12-15] MEDS ORDERED: POTASSIUM CL 10 MEQ TAB PO ONE (09:12)
[2017-12-15] MEDS: INSULIN GLARGINE 100 UNITS/ML UNIT SC SCH (09:44)
[2017-12-15] MEDS: ENOXAPARIN 40 MG/0.4 ML SYR SC SCH (09:44)
[2017-12-15] MEDS: ATORVASTATIN CALCIUM 40 MG TAB PO SCH (09:44)
[2017-12-15] MEDS: ASPIRIN 325 MG TAB PO SCH (09:45)
[2017-12-15] MEDS: ACETAMINOPHEN 325 MG TAB PO PRN ×3 (10:16→22:36)
[2017-12-15] MEDS ORDERED: PROMETHAZINE HCL 25 MG/ML INJ IVP PRN (10:17)
[2017-12-15] MEDS: MAG HYDROX/AL HYDROX/SIMETH 30 ML UDCUP PO PRN ×2 (10:28→17:12)
--- NOTE | 2017-12-15 13:08 | HOSPPROG ---
Hospitalist Progress Note Assessment/Plan: 67-year-old male presents with severe sepsis, COPD, acute on chronic hypoxic and hypercapnic respiratory failure, Strep pneumonia/bacteremia c/b reintubation and ongoing resp failure. Plan: # Acute on chronic hypercapnic and hypoxic respiratory failure. Requiring reintubation and cont vent support -Extubated yesterday, currently on 2L NC, continue to wean 02 as tolerated # Strep Pneumonia and bacteremia. Present on admission, evidenced by right lower lobe infiltrate, uStrep positive -12/06 BCx positive, repeat neg -Echo w/o obvious veg -appreciate ID consult, cont CTX 2g daily for 14 days, PICC placed on 12/12, end date 12/24/2017 # Acute systolic CHF w/ cardiomyopathy. Suspect non-ischemic w/ EF 35%, global, RV dysfunction, likely 2/2 critical illness -plan on cardiac risk stratification s/p clinical recovery -ASA 325 in interim -will hold on further diuretics, titrate as needed # Acute COPD exacerbation. Evidenced by diffuse expiratory wheezes and hypercapnia, most likely triggered by pneumonia -ongoing bilat bronch breath sounds, discontinued steroids on 12/12 -cont PRN nebs # Suspected underlying ILD. CT w/ interstitial infiltrates + possible RLL peripheral malignancy -Need outpt f/u CT in approx 6 weeks and either bronch or IR biopsy depending on resolution # Severe sepsis. Present on admission, 2/2 pneumonia, resolved # Metabolic acidosis. Acute, secondary to lactic acid, resolved # Acute kidney injury. Secondary to renal hypoperfusion in the setting of severe sepsis, resolved # Hypertension. Chronic, uptitrated home amlodipine to 10mg # Hyperglycemia 2/2 Diabetes mellitus type 2 with diabetic neuropathy. Adjusted from insulin gtt to ISS + lantus # Encephalomalacia. Unknown cog baseline, suspect he will have persistent cog defects s/p extubation # Rhino and Enteroviral syndromes. Unclear whether initial viral precipitant predisposed his bacterial PNA -cont on isolation precautions Diet. OG Prophylaxis. High risk patient, lovenox 40 Code. Full per patient, his son ANGEL in [place] is his MD POA Disposition. Therapy recommending SNF placement, CM consulted yesterday to work on this Subjective: Patient reports some indigestion this AM Objective: Vital Signs Temp Pulse Resp BP Pulse Ox 36.8 C 70 20 141/87 H 96 12/15/17 11:21 12/15/17 11:21 12/15/17 11:21 12/15/17 11:21 12/15/17 11:21 Microbiology 12/09/17 12:50 Blood Culture - Final Blood 12/09/17 13:00 Blood Culture - Final Blood Laboratory Results 12/14/17 06:15 12/15/17 06:20 12/14/17 12/15/17 12/16/17 06:59 05:59 05:59 Intake Total 440 Output Total 450 Balance -10 - Physical Exam Constitutional: chronically ill appearing Eyes: PERRL Ears, Nose, Mouth, Throat: moist mucous membranes Cardiovascular: regular rate and rhythym Respiratory: no respiratory distress Gastrointestinal: soft, non-tender abdomen Genitourinary: no bladder tenderness Skin: warm Musculoskeletal: generalized weakness Neurologic: AAOx3 Psychiatric: interacting appropriately ICD10 Worksheet Patient Problems: Problems Problem Status Onset Chronic obstructive pulmonary disease with acute exacerbation Acute Pneumonia Acute Severe sepsis Acute
--- NOTE | 2017-12-15 15:05 | PCMIDPN ---
Assessment/Plan: Assessment/Plan: * Severe sepsis due to Streptococcus pneumoniae bacteremia associated with pneumonia: Extubated and transferred to floor with gradual clinical improvement. Continue ceftriaxone while hospitalized. Ultimately could complete therapy with oral levofloxacin based on pneumococcal susceptibility provided compliance could be assured. Yeast from BAL does not require targeted antifungal therapy. * Rhino virus/enterovirus: Continue droplet precautions during hospitalization. 12/15/17 15:02 Subjective: Patient complains of shortness of breath. Objective: Vital Signs Temp Pulse Resp BP Pulse Ox 36.8 C 70 20 141/87 H 96 12/15/17 11:21 12/15/17 11:21 12/15/17 11:21 12/15/17 11:21 12/15/17 11:21 Microbiology 12/09/17 12:50 Blood Culture - Final Blood 12/09/17 13:00 Blood Culture - Final Blood Laboratory Results 12/14/17 06:15 12/15/17 06:20 12/14/17 12/15/17 12/16/17 06:59 05:59 05:59 Intake Total 440 Output Total 450 Balance -10 Ceftriaxone # 5 - Physical Exam General Appearance: alert, no apparent distress, non-toxic EENT: No scleral icterus, No conjunctival petechiae Respiratory: wheezing (Bilaterally) Cardiac/Chest: regular rate, rhythm Extremities: No pedal edema Abdomen: non-tender, No distended - Line/s RUE PICC Lines: No drainage, No erythema ICD10 Worksheet Patient Problems: Problems Problem Status Onset Chronic obstructive pulmonary disease with acute exacerbation Acute Pneumonia Acute Severe sepsis Acute
[2017-12-16] MEDS: INSULIN REGULAR HUMAN 100 UNIT/ML UNIT SC SCH ×3 (00:08→13:06)
[2017-12-16] MEDS: LEVOTHYROXINE 50 MCG TAB PO SCH (05:41)
[2017-12-16] MEDS ORDERED: POTASSIUM CL 10 MEQ TAB PO ONE (06:43)
[2017-12-16] MEDS: ENOXAPARIN 40 MG/0.4 ML SYR SC SCH (08:07)
[2017-12-16] MEDS: INSULIN GLARGINE 100 UNITS/ML UNIT SC SCH (08:07)
[2017-12-16] MEDS: MAG HYDROX/AL HYDROX/SIMETH 30 ML UDCUP PO PRN ×2 (08:07→13:08)
[2017-12-16] MEDS: ASPIRIN 325 MG TAB PO SCH (08:08)
[2017-12-16] MEDS: ATORVASTATIN CALCIUM 40 MG TAB PO SCH (08:08)
[2017-12-16] MEDS: ACETAMINOPHEN 325 MG TAB PO PRN (08:08)
--- NOTE | 2017-12-16 10:23 | PDIAF ---
- Diagnosis Code Status: Full Code - Medication Management [facility] Antibiotics: Ceftriaxone 2 gm every 24 hours [facility] Antibiotic Stop Date: 12/24/17 Discharge Medications: electronically signed and located in the Home Medication List. PICC Care - Routine: Yes - Orders Services needed: Certified Food Safety Auditor, Physical Therapy, Occupational Therapy Isolation Type: Droplet Isolation Diet Texture: Dysphagia 2 - Mechanically Altered - Chopped, Ground, [place] Thick Liquids, Meds Whole in Puree - Follow Up Care Current Providers and Referrals: Patient,NotPresent [Unknown] - As per Instructions
--- NOTE | 2017-12-16 11:00 | PCMIDPN ---
Assessment/Plan: Assessment: Strep pneumo bacteremia from a respiratory source. Patient has improved since his stay in the ICU. Continues to receive ceftriaxone 2 g daily. Vital signs are very stable. Plan to transfer to senior care facility to complete an IV course of ceftriaxone. He is off respiratory precautions as he has no ongoing upper respiratory symptoms. The precautions were placed initially due to a positive rhino virus enterovirus finding on viral panel PCR. Plan: 1. Continue IV ceftriaxone at current dose. 2. Agree to transfer to senior care facility for completion of IV ceftriaxone. Subjective: Patient is resting comfortably in his hospital room. He reports no productive cough. He states he is feeling much better since admission. Denies any fevers or chills. No shortness of breath. Objective: Ceftriaxone # 6 Vital Signs Temp Pulse Resp BP Pulse Ox 36.7 C 79 16 156/88 H 96 12/16/17 07:18 12/16/17 07:18 12/16/17 07:18 12/16/17 07:18 12/16/17 07:18 Microbiology 12/09/17 12:50 Blood Culture - Final Blood 12/09/17 13:00 Blood Culture - Final Blood Laboratory Results 12/14/17 06:15 12/16/17 04:06 12/15/17 12/16/17 12/17/17 05:59 05:59 05:59 Intake Total 1020 350 Output Total 1725 Balance -705 350 - Physical Exam General Appearance: WD/WN, alert, no apparent distress, non-toxic Respiratory: lungs clear, wheezing, No normal breath sounds, No crackles, No stridor Cardiac/Chest: regular rate, rhythm, No tachycardia Skin: normal color, warm/dry, No rash Neuro/Psych: alert, normal mood/affect, oriented x 3 ICD10 Worksheet Patient Problems: Problems Problem Status Onset Chronic obstructive pulmonary disease with acute exacerbation Acute Pneumonia Acute Severe sepsis Acute
--- NOTE | 2017-12-16 11:11 | PDDCSUM ---
Discharge Summary Discharge Summary: Date of Admission: 12/06/2017 Date of Discharge: 12/16/2017 Consults: ID, Critical Care, Cardiology Followup: PCP, Cardiology- will need risk stratification after discharge, repeat CT after 6 weeks Hospital Course Problem List: 67-year-old male presents with severe sepsis, COPD, acute on chronic hypoxic and hypercapnic respiratory failure requiring extubation, Strep pneumonia/ bacteremia. Plan: # Acute on chronic hypercapnic and hypoxic respiratory failure. Requiring reintubation and cont vent support -Extubated, currently on 2L NC, continue to 02 as tolerated # Strep Pneumonia and bacteremia. Present on admission, evidenced by right lower lobe infiltrate, uStrep positive -12/06 BCx positive, repeat neg -Echo w/o obvious veg -appreciate ID consult, cont CTX 2g daily for 14 days, PICC placed on 12/12, end date 12/24/2017 # Acute systolic CHF w/ cardiomyopathy. Suspect non-ischemic w/ EF 35%, global, RV dysfunction, likely 2/2 critical illness -plan on cardiac risk stratification s/p clinical recovery -ASA 325 in interim # Acute COPD exacerbation. Evidenced by diffuse expiratory wheezes and hypercapnia, most likely triggered by pneumonia -ongoing bilat bronch breath sounds, discontinued steroids on 12/12 -cont PRN nebs # Suspected underlying ILD. CT w/ interstitial infiltrates + possible RLL peripheral malignancy -Need outpt f/u CT in approx 6 weeks and either bronch or IR biopsy depending on resolution # Severe sepsis. Present on admission, 2/2 pneumonia, resolved # Metabolic acidosis. Acute, secondary to lactic acid, resolved # Acute kidney injury. Secondary to renal hypoperfusion in the setting of severe sepsis, resolved # Hypertension. Chronic, uptitrated home amlodipine to 10mg # Hyperglycemia 2/2 Diabetes mellitus type 2 with diabetic neuropathy. Adjusted from insulin gtt to ISS + lantus # Encephalomalacia. Unknown cog baseline, suspect he will have persistent cog defects s/p extubation # Rhino and Enteroviral syndromes. Unclear whether initial viral precipitant predisposed his bacterial PNA Time spent on discharge was >35 minutes with >50% of time spent on patient education/counseling.
--- NOTE | 2017-12-16 11:34 | ASMTDCNOTE ---
Case Management Discharge Discharge Order Complete? Answers: Yes Patient to Obtain Answers: Other Notes: [facility] Medications Transportation Arranged Answers: Other Notes: [place] [facility] Transport will Pick (Date 12/16/2017 01:30 PM & Time) EMTALA Complete Answers: No Case Management Transport Answers: Yes Form Complete Faxed Final Orders Answers: Yes Agency/Facility Transfer Answers: Yes Report Printed & Faxed to Receiving Agency Family Notified Answers: No Discharge Comments Notes: CM spoke to Dr. Tuttle and Chiara RN regarding d/c POC. Kathleen from [facility] stopped by and did an on site. Kathleen is able to accept. CM met w/ pt for dispo planning. Pt is agreeable to going to [facility]. Pt is being discharged today. DC orders sent. CM provided Chiara w/ phone number to give report. CM available for changes. Plan: [facility] Date Signed: 12/16/2017 11:31 AM Electronically Signed By:REBECCA Yuan
--- NOTE | 2017-12-16 11:39 | ASDISCHSUM ---
Discharge Information Plan Status:SNF Medically Cleared to Leave:12/15/2017 Discharge Date:12/15/2017 CM D/C Disposition: ADT D/C Disposition: Projected Discharge Date:12/16/2017 11:00 AM Transportation at D/C: Discharge Delay Reason: Follow-Up Date:12/16/2017 11:00 AM Discharge Slot: Final Diagnosis:PNA, Severe sepsis, COPD exascerbation Placement Information Referral Type:*Longterm/SNF Referral ID:-[id number] Provider Name:[facility] Address 1:[address] Address 2: City:[place] Selection Factors: State:[place] Patient Contact Information Contact Name:DANII Relationship:Daughter Address: Work Phone: City: [facility] Phone: [facility] Code: Email: Financial Information Financial Class:Medicare Primary Plan Desc:MEDICARE INPATIENT Primary Plan Number:[id number] Secondary Plan Desc:MED[place] Secondary Plan Number:[id number] Assessment Information LACE LACE Acuity / Level of Answers: Yes Care: Did the patient have an inpatient admission? Comorbidities - select Answers: Any tumor (including all that apply lymphoma or leukemia) Cerebrovascular disease (CVA, TIA, aneurysms, vasc ular dementia) Chronic pulmonary disease Diabetes (uncontrolled or controlled) Other Notes: HTN, Hyperlipidemia # of Emergency department Answers: 1-2 visits in the last 6 months Social determinants Answers: History of substance abuse (ETOH, street drugs, prescription drugs, etc.) Homelessness (street, care home) Score: 17 Date Signed: 12/07/2017 02:29 PM Electronically Signed By:Radha Ochoa RN [facility] IGOR Progress Note CM Note CM Note Notes: Reviewed chart. Pt found down in care home bathroom, transported to the Emergency Department via EMS. History includes COPD with hypoxic respiratory failure with 24 hr oxygen needs, diabetes type 2, CVA with no residual deficits, GERD with Jacome's esophagus, HTN, hyperlipidemia, bronchoscopy for malignancy, alcoholism. Pt is currently homeless and staying at the [facility]. Discharge needs remain unclear at this time. CM will continue to follow. Discharge Plan: To be determined Date Signed: 12/07/2017 02:33 PM Electronically Signed By:Radha Ochoa RN [facility] CM Progress Note CM Note CM Note Notes: Patient was extubated last night then had to be reintubated. Has severe sepsis, COPD, PNA. Patient told Dr. Lima that he wanted his son, ANGEL to be his MPOA. [employer] has called and spoke with son. Son reported to [employer] that patient has an address and not homeless. This needs to be sorted out when patient is awake and decisional. Maybe pt doesn't want his family to know he's homeless? Could son assist patient with housing or other care on discharge? Date Signed: 12/10/2017 03:50 PM Electronically Signed By:Alice Nogueira LCSW [facility] CM Progress Note CM Note CM Note Notes: I spoke with Willian, server programmer at the [facility], who confirmed that patient does stay at a reserved bed there. He also has a car. Both Willian and the ICU intensivists have been in contact w patient's son ANGEL who says he is going to visit from [place] but cannot say when. Patient is still intubated and unable to give more background at this time. Case Management will follow. Date Signed: 12/12/2017 09:04 AM Electronically Signed By:Patricia Rosario RN [facility] Progress Note CM Note CM Note Notes: Attempted to speak with pt but he was fast asleep. He is homeless and stays at the care home, he also has a car. PT/OT recommend SNF, CM sent a few referrals and will discuss with pt when he is alert. DC Plan: SNF Date Signed: 12/14/2017 04:27 PM Electronically Signed By:Cristina Galeano RN Case Management Discharge Plan Note Case Management Discharge Discharge Order Complete? Answers: Yes Patient to Obtain Answers: Other Notes: [facility] Medications Transportation Arranged Answers: Other Notes: [facility] Transport will Pick (Date 12/16/2017 01:30 PM & Time) CRISTAL Complete Answers: No Case Management Transport Answers: Yes Form Complete Faxed Final Orders Answers: Yes Agency/Facility Transfer Answers: Yes Report Printed & Faxed to Receiving Agency Family Notified Answers: No Discharge Comments Notes: IGOR spoke to Dr. Tuttle and ANICETO Guadarrama regarding d/c POCJaylon [facility] on [facility]. Kathleen is able to accept. CM met w/ pt for dispo planning. Pt is agreeable to going to [facility]. Pt is being discharged today. DC orders sent. CM provided Chiara w/ phone number to give report. CM available for changes. Plan: [facility] Date Signed: 12/16/2017 11:31 AM Electronically Signed By:REBECCA Yuan Intervention Information
[2017-12-16 11:59] VITALS: BP 117/85
== END 2017-12-16 13:59 | DRG 870 ==
LOC: EDBD 09:49 → F2N 14:28 → F3E 12-13 20:28
PROVIDERS: ADMIT Internal Medicine; ATTEND Internal Medicine
DX: A41.9 Sepsis, unspecified organism (principal); J96.21 Acute and chronic respiratory failure with hypoxia; J96.22 Acute and chronic respiratory failure with hypercapnia; J15.4 Pneumonia due to other streptococci; I50.21 Acute systolic (congestive) heart failure; J44.1 Chronic obstructive pulmonary disease with (acute) exacerbation; R78.81 Bacteremia; I42.9 Cardiomyopathy, unspecified; J84.9 Interstitial pulmonary disease, unspecified; N17.9 Acute kidney failure, unspecified; E87.2 Acidosis; R65.20 Severe sepsis without septic shock; E86.9 Volume depletion, unspecified; I11.0 Hypertensive heart disease with heart failure; E11.65 Type 2 diabetes mellitus with hyperglycemia; E11.40 Type 2 diabetes mellitus with diabetic neuropathy, unspecified; G93.89 Other specified disorders of brain; E03.9 Hypothyroidism, unspecified; Z59.0 Homelessness; Z23 Encounter for immunization
CPT/HCPCS: 80307; 82435-PO; 82565-PO; 82947-PO; 83605-PO; 84132-PO; 84295-PO; 84520-PO; 85014-PO; 86334-90; 87449-90; 92507-GN; 92523-GN; 92526-GN; 92610-GN; 96374; 97116-GP; 97162-GP; 97166-GO; 97535-GO; C1751; G0009; G0480; G8978-GP-CL; G8979-GP-CJ; G8980-GP-CJ; G8987-GO-CK; G8988-GO-CI; G8996-GN-CK; G8997-GN-CI; G9168-GN-CL; G9169-GN-CL; G9170-GN-CL; J0330; J0456; J0696; J1630; J1644; J1650; J1815; J1940; J2060; J2250; J2405; J2543; J2550; J2704; J2920; J2930; J3010; J3360; J3370; J3480; J7613; Q9967

== ENCOUNTER → 2018-01-14 | Outpatient (CLI) | payer OTHER, MEDICAID | LOC: BHFA 11:30 | PROVIDERS: ATTEND Physician Assistant Medical | DX: I50.20 Unspecified systolic (congestive) heart failure (principal); I63.9 Cerebral infarction, unspecified; I77.9 Disorder of arteries and arterioles, unspecified; I10 Essential (primary) hypertension; E11.65 Type 2 diabetes mellitus with hyperglycemia; J44.9 Chronic obstructive pulmonary disease, unspecified; R09.02 Hypoxemia ==

== ENCOUNTER → 2018-02-21 | Outpatient (CLI) | payer OTHER, MEDICAID | LOC: BHFA 11:30 | PROVIDERS: ATTEND Internal Medicine Cardiovascular Disease | DX: I50.9 Heart failure, unspecified (principal) ==